=== PATIENT | female | born 1935 ===

== ENCOUNTER 2020-11-26 09:03 | Inpatient (IN) ==
[2020-11-26 11:51] LABS: POC Blood Urea Nitrogen 29 mg/dL (6-20); POC CO2 23 mmol/L (22-30); POC Calcium, Ionized 1.17 mmEq/L (1.16-1.32); POC Chloride 101 mEq/L (96-108); POC Glucose, Random 96 mg/dL (70-105); POC Hematocrit 32 % (36-48); POC Potassium 3.9 mEql/L (3.3-5.1); POC Sodium 138 mEq/L (133-145)
[2020-11-26 11:52] LABS: POC Pro Time 12.4 sec (11.9-14.5)
[2020-11-26 12:55] LABS: Hematocrit 32.1 % (36.0-48.0); Hemoglobin 10.3 g/dL (12.0-15.0); Mean Cell Volume 89.9 fL (80.0-100.0); Mean Corpuscular HGB Conc 32.1 g/dL (31.0-36.0); Mean Platelet Volume 11.7 fL (7.4-10.4); Platelet Count 230 K/mcL (140-440); RBC 3.57 M/mcL (4.00-5.20); Red Cell Distribution Width 13.2 % (11.5-14.5); WBC 7.6 K/mcL (4.5-11.0)
[2020-11-26 13:03] LABS: ALT/SGPT 9 U/L (<40); AST/SGOT 18 U/L (<32); Albumin 3.7 gm/dL (3.2-5.2); Alkaline Phosphatase 52 U/L (39-117); Bilirubin,Total 0.3 mg/dL (0.1-1.0); Blood Urea Nitrogen 28 mg/dL (8-23); Calcium 9.7 mg/dL (8.6-10.4); Carbon Dioxide 22 mmol/L (22-30); Chloride 97 mmol/L (96-108); Globulin 3.7 gm/dL (2.2-3.7); Glomerular Filtration Rate 25; Glucose 91 mg/dL (70-105)
[2020-11-26] MEDS ORDERED: VANCOMYCIN PER PHARMACY IV ONE (13:07)
[2020-11-26] MEDS ORDERED: CEFEPIME 1 GM VIAL IV ONE (13:07)
--- NOTE | 2020-11-26 13:21 | Cat Scan Report ---
CLINICAL INFORMATION: thigh wound, concern for deep space inf COMPARISON: None. TECHNIQUE: 0.625 mm helical slices were obtained from the left acetabulum to the proximal tibia and fibula. Following reconstruction, 2.5 or sagittal, coronal and axial reformatted images were processed and reviewed at bone and soft tissue windows. FINDINGS: The bone windows show no evidence of osteomyelitis or other osseous abnormality. There is mild degeneration in the hip and moderate degeneration in the patellofemoral and the lateral tibiofemoral joints. There is a 7 cm cutaneous ulceration in the medial thigh with underlying cellulitis confined to the subcutaneous fat. The muscle and fascial compartments are unremarkable-no evidence of myositis or fasciitis. There is no evidence of soft tissue abscess or foreign body. There is mild atrophy of the medial head of the gastrocnemius proximally. IMPRESSION: 7 cm cutaneous ulceration the medial thigh with mild underlying cellulitis. No evidence of underlyingabscess or myositis/ fasciitis. No evidence of osteomyelitis. Mild degeneration. 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
[2020-11-26 13:25] LABS: Band Neutrophils % 1 % (0-10); Lymphocytes % 16 % (15-49); Monocytes % (Manual) 4 % (1-12); Platelet Estimate NORMAL (Normal); RBC Morphology NORMAL (Normal); Segmented Neutrophils % 79 % (38-78)
--- NOTE | 2020-11-26 13:26 | Emergency Department Note ---
HPI General Chief complaint: Wound/Laceration Stated complaint: wound to left thigh infected Time Seen by Provider: 11/26/20 10:45 Source: family Mode of arrival: ambulatory Limitations: no limitations History of Present Illness HPI Narrative: Narrative: Patient presents with wound to the left thigh. 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 The day of injury patient was seen in outside apartment and the laceration was repaired. Patient has had poor wound healing and was seen by wound care since. The wound has not gotten better with outpatient antibiotics patient has been on Keflex and Cipro. In the clinic today and sent for admission and OR washout. No fevers or chills, no abdominal pain, no chest pain or shortness of breath. Related Data Home Medications Medication Instructions Recorded Confirmed bisoprolol fumarate 2.5 mg PO BID 11/26/20 11/26/20 ciprofloxacin HCl [Cipro] 500 mg PO BID 11/26/20 11/26/20 triamterene-hydrochlorothiazid 1 cap PO QDAY 11/26/20 11/26/20 Allergies Allergy/AdvReac Type Severity Reaction Status Date / Time No Known Drug Allergies Allergy Unverified 11/26/20 09:12 Review of Systems ROS ROS Narrative: Narrative: All systems ED: reviewed and negative except as stated. [facility] Narrative Patient History Narrative: Narrative: Medical/Surgical/Family History All Active Problems (Updated 11/26/20 @ 18:12 by Bryce Amato MD) Laceration (Acute) Non-healing wound of lower extremity (Acute) Social History Smoking Status: Never smoker Exam Narrative Narrative: Narrative: General Limitations: no limitations General appearance: Present alert, in no apparent distress and nontoxic Head Head: Present atraumatic, normocephalic and normal inspection ENT ENT: Present normal exam Neck Neck: Present normal inspection Chest Chest: Present normal inspection Respiratory Respiratory: Present normal lung sounds bilaterally; Absent wheezes, stridor and decreased breath sounds Cardiovascular Cardiovascular: Present regular rate, normal rhythm and normal heart sounds Adbominal Abdominal: Present soft and normal bowel sounds Extremities Extremities: Present normal inspection and full ROM Back Back: Absent CVA tenderness (R) and CVA tenderness (L) Neurological Neurological: Present alert and oriented X3 Psychiatric Psychiatric: Present normal affect Skin Skin: Present warm (WNL), dry and other (10 cm large wound to the left inner thigh, foul-smelling); Absent rash Course Vital Signs Vital signs: Vital Signs Temperature 96.8 F L 11/26/20 09:04 Respiratory Rate 16 11/26/20 09:04 Blood Pressure 97/63 11/26/20 09:04 Pulse Oximetry (%) 98 11/26/20 09:04 Temperature 97.6 F 11/26/20 16:25 Pulse Rate 83 11/26/20 16:25 Respiratory Rate 16 11/26/20 16:25 Blood Pressure 98/53 11/26/20 16:25 Pulse Oximetry (%) 97 11/26/20 16:25 MDM MDM Narrative Medical decision making narrative: Narrative:Patient was seen and evaluated in the emergency department for wound to the left thigh. Patient was sent from [facility]. Patient's exam showed a 10 cm nonhealing wound without obvious cellulitic changes. CT scan was performed which showed no deep space abscess, fasciitis, myositis or obvious osteomyelitis within the midst of a CT scan. Patient's creatinine was 2.0, CRP was elevated at 2.3 patient was given Vanco and cefepime. Patient was admitted as an observation with wound care following and likely OR tomorrow. Lab Data Result diagrams: 11/26/20 12:12 11/26/20 11:45 Labs: Lab Results 11/26/20 11/26/20 11/26/20 Range/Units 11:45 11:45 12:12 WBC 7.6 (4.5-11.0) K/mcL RBC 3.57 L (4.00-5.20) M/mcL Hgb 10.3 L (12.0-15.0) g/dL Hct 32.1 L (36.0-48.0) % POC Hct 32 L (36-48) % MCV 89.9 (80.0-100.0) fL MCH 28.9 (26.0-34.0) pg MCHC 32.1 (31.0-36.0) g/dL RDW 13.2 (11.5-14.5) % Plt Count 230 (140-440) K/mcL MPV 11.7 H (7.4-10.4) fL Seg Neutrophils % 79 H (38-78) % Band Neutrophils % 1 (0-10) % Lymphocytes % 16 (15-49) % Monocytes % (Manual) 4 (1-12) % Platelet Estimate Normal (Normal) RBC Morphology Normal (Normal) ESR 79 H (0-20) mm/hr POC PT 12.4 (11.9-14.5) sec POC INR 1.0 (0.8-1.2) POC Sodium 138 (133-145) mEq/L Sodium 135 (133-145) mmol/L POC Potassium 3.9 (3.3-5.1) mEql/L Potassium 3.9 (3.3-5.1) mmol/L POC Chloride 101 (96-108) mEq/L Chloride 97 (96-108) mmol/L Carbon Dioxide 22 (22-30) mmol/L POC Total CO2 23 (22-30) mmol/L Anion Gap 16.0 (8.0-16.0) POC BUN 29 H (6-20) mg/dL BUN 28 H (8-23) mg/dL Creatinine 1.8 H (0.6-1.1) mg/dL POC Creatinine 2.0 H (0.6-1.2) mg/dL GFR Calculation 25 Glucose 91 (70-105) mg/dL POC Glucose 96 (70-105) mg/dL Calcium 9.7 (8.6-10.4) mg/dL POC WB Ioniz Calcium 1.17 (1.16-1.32) mmEq/L Total Bilirubin 0.3 (0.1-1.0) mg/dL AST 18 (<32) U/L ALT 9 (<40) U/L Alkaline Phosphatase 52 (39-117) U/L C-Reactive Protein 2.30 H (0.03-0.80) mg/dL Total Protein 7.4 (5.9-8.4) gm/dL Albumin 3.7 (3.2-5.2) gm/dL Globulin 3.7 (2.2-3.7) gm/dL Albumin/Globulin Ratio 1.0 (1.0-2.3) ED POC Tests ED POC Tests: NICHO - SARS Antigen Negative Discharge Plan Patient/Caregiver Discharge Instructions Pt seen by [facility]/PA only: No Clinical Impression: Laceration Non-healing wound of lower extremity Qualifiers: Encounter type: subsequent encounter Laterality: left Qualified Code(s): S81.802D - Unspecified open wound, left lower leg, subsequent encounter Patient Disposition: Xfer As Outpt/Obs ([facility]) Discharge Date/Time: 11/26/20 16:25
[2020-11-26] MEDS ORDERED: VANCOMYCIN 1,000 MG in 0.9 % SODIUM CHLORIDE 250 ML IV ONE (13:30)
[2020-11-26 14:30] LABS: Erythrocyte Sedimentation Rate 79 mm/hr (0-20)
--- NOTE | 2020-11-26 17:57 | Internal Med History&Physical ---
HPI History of Present Illness Patient information: Note initiated : 11/26/20 at 5:46 pm Service Date, if different from initiated Date: [] Patient: Pham Kelly 85 y/o F admitted on 11/26/20 for wound to left thigh infected. Chief Complaint: [] History of present illness: Ms. Kelly is a 85 year old female with a history of hypertension and a left thigh wound sustained about 3 weeks ago after being trampled by a cow now presenting to the ED for surgery which is planned for tomorrow. Internal medicine has been asked to admit the patient. The patient denies fevers, she has been on multiple courses of antibiotics initially with Keflex then ciprofloxacin with no significant improvement in the wound. She denies changes in sensation or motor function in the left lower extremity. In the ED, the patient did not have leukocytosis, creatinine was 1.8, CRP 2.3. A CT scan of the left lower extremity without contrast showed a 7 cm cutaneous ulceration in the medial thigh with mild underlying cellulitis no evidence of underlying abscess, myositis, fasciitis, no evidence of osteomyelitis. Review of systems Constitutional: positive for chills, no fevers Eyes: no vision changes or pain Cardiovascular: no chest pain, no palpitations Respiratory: no cough or dyspnea Gastrointestinal: no abdominal pain, no nausea, vomiting, or diarrhea Genitourinary: no dysuria or difficulty voiding Musculoskeletal: positive for left left pain but no limiting movement Integumentary: positive for left thigh wound Neurological: no focal weakness or numbness Psychiatric: no anxiety or depression Physical exam Head: Atraumatic, normal inspection. Eyes: normal appearance, no scleral icterus. Neck: full ROM Respiratory: no respiratory distress. Cardiovascular: normal rate and rhythm, S1, S2. GI/Abdominal: soft, nontender, no guarding. Extremities: large wound on medial left thigh with foul smelling purulence Neurological: CN II-XII intact, intact motor, intact sensation. Psychiatric: normal mood. Skin: warm, normal color MEDS/ALLERGIES Home Medications and Allergies Home Medications Medication Instructions Recorded Confirmed Type bisoprolol fumarate 2.5 mg PO BID 11/26/20 11/26/20 History ciprofloxacin HCl [Cipro] 500 mg PO BID 11/26/20 11/26/20 History triamterene-hydrochlorothiazid 1 cap PO QDAY 11/26/20 11/26/20 History Allergies Allergy/AdvReac Type Severity Reaction Status Date / Time No Known Drug Allergies Allergy Unverified 11/26/20 09:12 EXAM Constitutional Vitals: Temp Pulse Resp BP Pulse Ox 97.6 F 83 16 98/53 97 11/26/20 16:25 11/26/20 16:25 11/26/20 16:25 11/26/20 16:25 11/26/20 16:25 DATA Data Completed and Pending Labs: Labs from last 24 hours 11/26/20 11/26/20 11/26/20 12:12 11:45 11:45 WBC 7.6 RBC 3.57 L Hgb 10.3 L Hct 32.1 L POC Hct 32 L MCV 89.9 MCH 28.9 MCHC 32.1 RDW 13.2 Plt Count 230 MPV 11.7 H Seg Neutrophils % 79 H Band Neutrophils % 1 Lymphocytes % 16 Monocytes % (Manual) 4 Platelet Estimate Normal RBC Morphology Normal ESR 79 H POC PT 12.4 POC INR 1.0 POC Sodium 138 Sodium 135 POC Potassium 3.9 Potassium 3.9 POC Chloride 101 Chloride 97 Carbon Dioxide 22 POC Total CO2 23 Anion Gap 16.0 POC BUN 29 H BUN 28 H Creatinine 1.8 H POC Creatinine 2.0 H GFR Calculation 25 Glucose 91 POC Glucose 96 Calcium 9.7 POC WB Ioniz Calcium 1.17 Total Bilirubin 0.3 AST 18 ALT 9 Alkaline Phosphatase 52 C-Reactive Protein 2.30 H Total Protein 7.4 Albumin 3.7 Globulin 3.7 Albumin/Globulin Ratio 1.0 A/P Narrative A/P Narrative: Assessment: 85 year old female with hypertension and nonhealing left thigh wound from wound sustained after being crushed by a cow admitted for surgical management. #Nonhealing left thigh wound #Elevated creatine - CKD vs HARI? #Hypertension Plan -Admit for observation. -Hold off antibiotics until surgical cultures can be obtained. -Hold home Triamterene-Hydrochlorothiazide. -Monitor renal function. -NPO at midnight. -Code status: Full -Disposition: home Time Spent With Patient Time: Total time spent is greater than 50% in coordination of care (as documented) at patient's floor/unit and/or counseling patient: QUALITY Stroke Symptom Onset Unknown: No VTE Deep Vein Thrombosis/Pulmonary Embolism Present on Admission: No
[2020-11-26] MEDS ORDERED: ACETAMINOPHEN 325 MG TABLET PO PRN (18:03)
--- NOTE | 2020-11-26 19:46 | General Surgery Consult Note ---
HPI Data of Consult Consult date: 11/26/20 Requesting physician: Joseph Joseph Primary Care Provider: Stella Santos Consult Narrative Chief complaint: NON HEALING Post traumatic wound LEFT thigh. Reason for consult: Failed out patient treatment. Needs surgery and further wound care. History of present illness: Patient sustained a traumatic injury, when a cow trampled on her LEFT medial thigh on 11/04/2020. Avulsed skin flap was sutured back in ER at [facility] and patient was treated with PO antibiotics. Due to lack of healing and subsequent necrosis and dry gangrene of flap, she was referred to wound care center for further management. Patient is otherwise in her usual state of health and ADL. I saw her in the wound clinic today and referred her to ER for for work up, imaging studies and preparation for OR debridement tomorrow AM. 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 She is a lifelong non smoker. cc:: CC: Joseph Joseph MD [facility] All Active Problems Laceration (Acute) Non-healing wound of lower extremity (Acute) MEDS/ALLERGIES Home Medications and Allergies Home Medications Medication Instructions Recorded Confirmed Type bisoprolol fumarate 2.5 mg PO BID 11/26/20 11/26/20 History ciprofloxacin HCl [Cipro] 500 mg PO BID 11/26/20 11/26/20 History triamterene-hydrochlorothiazid 1 cap PO QDAY 11/26/20 11/26/20 History Allergies Allergy/AdvReac Type Severity Reaction Status Date / Time No Known Drug Allergies Allergy Unverified 11/26/20 09:12 Physical Examination Vital Signs Vital signs: Temp Pulse Resp BP Pulse Ox 97.6 F 83 16 98/53 97 11/26/20 16:25 11/26/20 16:25 11/26/20 16:25 11/26/20 16:25 11/26/20 16:25 General physical appearance General physical exam: well developed, well nourished, no distress and no pain Eyes Eye exam: PERRL and normal ocular movement ENT ENT exam: normal pinna, normal nares, normal mucosa and no congestion Head Head exam IM: Present atraumatic and normocephalic Neck Neck exam: no masses, no lymphadenopathy and no venous distension Cardiovascular Cardiovascular exam IM: Present normal rate and rhythm Peripheral pulses: 3+/4+: dorsalis pedis (L), dorsalis pedis (R), femoral (R) and posterior tibialis (L) Respiratory Respiratory exam: normal expansion and clear to auscultation Abdomen Abdomen: Present soft, non tender and bowel sounds Integumentary Integumentary: Present other (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 7 x 12 x 2 CM) Neurologic Neurologic: Present normal coordination, normal sensation and other (Non focal neurological examination. ) Musculoskeletal Musculoskeletal: Present normal gait and other (Ambulates without assistance. ) Psychiatric Psychiatric: Present oriented to time, oriented to person, oriented to place, speech is normal and memory intact Results Labs Result diagrams: 11/26/20 12:12 11/26/20 11:45 Labs: Abnormal lab results 11/26/20 11/26/20 Range/Units 11:45 12:12 RBC 3.57 L (4.00-5.20) M/mcL Hgb 10.3 L (12.0-15.0) g/dL Hct 32.1 L (36.0-48.0) % POC Hct 32 L (36-48) % MPV 11.7 H (7.4-10.4) fL Seg Neutrophils % 79 H (38-78) % ESR 79 H (0-20) mm/hr POC BUN 29 H (6-20) mg/dL BUN 28 H (8-23) mg/dL Creatinine 1.8 H (0.6-1.1) mg/dL POC Creatinine 2.0 H (0.6-1.2) mg/dL C-Reactive Protein 2.30 H (0.03-0.80) mg/dL Diabetes panel 11/26/20 Range/Units 11:45 Sodium 135 (133-145) mmol/L Potassium 3.9 (3.3-5.1) mmol/L Chloride 97 (96-108) mmol/L Carbon Dioxide 22 (22-30) mmol/L BUN 28 H (8-23) mg/dL Creatinine 1.8 H (0.6-1.1) mg/dL Glucose 91 (70-105) mg/dL Calcium 9.7 (8.6-10.4) mg/dL AST 18 (<32) U/L ALT 9 (<40) U/L Alkaline Phosphatase 52 (39-117) U/L Total Protein 7.4 (5.9-8.4) gm/dL Albumin 3.7 (3.2-5.2) gm/dL Calcium panel 11/26/20 Range/Units 11:45 Calcium 9.7 (8.6-10.4) mg/dL Albumin 3.7 (3.2-5.2) gm/dL Pituitary panel 11/26/20 Range/Units 11:45 Sodium 135 (133-145) mmol/L Potassium 3.9 (3.3-5.1) mmol/L Chloride 97 (96-108) mmol/L Carbon Dioxide 22 (22-30) mmol/L BUN 28 H (8-23) mg/dL Creatinine 1.8 H (0.6-1.1) mg/dL Glucose 91 (70-105) mg/dL Calcium 9.7 (8.6-10.4) mg/dL Adrenal panel 11/26/20 Range/Units 11:45 Sodium 135 (133-145) mmol/L Potassium 3.9 (3.3-5.1) mmol/L Chloride 97 (96-108) mmol/L Carbon Dioxide 22 (22-30) mmol/L BUN 28 H (8-23) mg/dL Creatinine 1.8 H (0.6-1.1) mg/dL Glucose 91 (70-105) mg/dL Calcium 9.7 (8.6-10.4) mg/dL Total Bilirubin 0.3 (0.1-1.0) mg/dL AST 18 (<32) U/L ALT 9 (<40) U/L Alkaline Phosphatase 52 (39-117) U/L Total Protein 7.4 (5.9-8.4) gm/dL Albumin 3.7 (3.2-5.2) gm/dL All other labs normal. A/P Narrative A/P Narrative: Assessment: Traumatic wound LEFT medial thigh with NECROTIC skin and subcutaneous tissue. ( Stage 4 wound ) Reviewed lab results and CT scan of thigh. NO evidence of deep located collections or osteomyelitis. Plan: For OR surgical excision debridement and pulse lavage irrigation. Tissue cultures and open packing. I discussed the plan of treatment and proposed surgical procedure with patient and her grand daughter. I/R/B/C and alternatives were reviewed. All questions were answered. Informed consent obtained for procedure. Time Spent With Patient Time: Total time spent is greater than 50% in coordination of care (as documented) at patient's floor/unit and/or counseling patient: Total time spent with greater than 50% in coordination of care (as documented) at patient's floor/unit and/or counseling patient:: 25 - 35 minutes
[2020-11-26] MEDS: BISOPROLOL 5 MG TABLET PO SCH (20:38)
[2020-11-26] MEDS: 0.9 % SODIUM CHLORIDE 10 ML SYRINGE IV SCH (20:38)
[2020-11-26] MEDS: DOCUSATE SODIUM 100 MG CAPSULE PO SCH (20:40)
[2020-11-26] MEDS: SENNOSIDES 1 TABLET PO SCH (20:40)
[2020-11-26 21:12] LABS: Appearance,Urine CLEAR (Clear); Bilirubin,Urine Negative (Negative); Color,Urine YELLOW; Culture Indicated,Urine No; Glucose,Urine (UA) Negative (Negative); Ketones,Urine 5 mg/dL (Negative); Leukocyte Esterase,Urine Negative /ug (Negative); Mucus,Urine FEW /hpf; Nitrate,Urine Negative (Negative); Protein,Urine Negative (Negative); Specific Gravity,Urine 1.015 (1.000-1.035); Urine Hyaline Cast 1 /lph (0-2); Urine RBC 1 /hpf (0-3); Urine Squamous Epithelial Cell 1 /hpf (0-4); Urine WBC 1 /hpf (0-4); Urobilinogen,Urine Negative
[2020-11-27] MEDS ORDERED: IPRATROPIUM/ALBUTEROL 3 ML AMPUL.NEB NEB PRN ×2 (05:00→16:27)
[2020-11-27] MEDS ORDERED: SCOPOLAMINE 1 PATCH PATCH TOPICAL PRN (05:00)
[2020-11-27] MEDS: 0.9 % SODIUM CHLORIDE 10 ML SYRINGE IV SCH ×3 (06:10→22:14)
[2020-11-27 07:44] LABS: Blood Urea Nitrogen 30 mg/dL (8-23); Calcium 8.7 mg/dL (8.6-10.4); Carbon Dioxide 25 mmol/L (22-30); Chloride 101 mmol/L (96-108); Glomerular Filtration Rate 32; Glucose 94 mg/dL (70-105)
[2020-11-27] MEDS: DOCUSATE SODIUM 100 MG CAPSULE PO SCH ×2 (09:10→21:49)
[2020-11-27] MEDS: BISOPROLOL 5 MG TABLET PO SCH ×2 (09:11→21:36)
--- NOTE | 2020-11-27 09:14 | General Surgery Progress Note ---
SUBJECTIVE Subjective Patient information: Note initiated : 11/27/20 at 9:11 am Service Date, if different from initiated Date: [] Patient: Pham Kelly 85 y/o F admitted on 11/26/20 for wound to left thigh infected. Chief Complaint: [] Additional PMFSH (Level 3 Only): Patient had an uneventful night. Constitutional Vitals: Vital Signs Temp Pulse Resp BP Pulse Ox 97.7 F 68 18 125/60 96 11/27/20 08:00 11/27/20 08:00 11/27/20 08:00 11/27/20 08:00 11/27/20 08:00 Period Temp Pulse Resp BP Sys/Restrepo Pulse Ox Last 24 Hr 96.8 F-98.2 F 68-85 16-20 97-143/53-95 94-99 Intake and Output 11/26/20 11/27/20 11/27/20 21:59 05:59 13:59 Intake Total 250 250 Output Total 100 200 100 Balance 150 50 -100 Weight 127 lb 8 oz Intake & Output: Intake & Output 11/26/20 11/27/20 11/27/20 21:59 05:59 13:59 Intake Total 250 250 Output Total 100 200 100 Balance 150 50 -100 Weight 127 lb 8 oz Intake: IV 250 Vancomycin 1,000 mg In Sodium 250 Chloride 0.9% 250 ml @ 250 mls/ hr IV ONCE ONE Rx#:[id number] Oral 250 Output: Void Amount 100 200 100 Other: Meal Dinner Percent of Meal Consumed 50% Feeding Ability Independent Urine Appearance Clear Clear Clear Urine Color Pale Bright Yellow Pale Urine Odor Normal General appearance: cooperative and no acute distress Exam: AVSS. No changes KERI Left thigh dressing is CDI. EKG NSR. Labs reviewed. A/P Narrative A/P Narrative: Assessment: Patient is ready for OR today . She is NPO Plan: Further recommendations after the procedure. Time Spent With Patient Time: Total time spent is greater than 50% in coordination of care (as documented) at patient's floor/unit and/or counseling patient: Total time spent with greater than 50% in coordination of care (as documented) at patient's floor/unit and/or counseling patient:: less than 15 minutes
--- NOTE | 2020-11-27 09:48 | XRay Report ---
CLINICAL INFORMATION: Pre operative for surgery under general anesthesia COMPARISON: None. FINDINGS: Heart size, mediastinum and pulmonary vessels are normal. The lungs are clear. No effusions. Minimal chronic wedging of the thoracic vertebral bodies noted. IMPRESSION: No acute cardiopulmonary disease. Interpreted and Authenticated by: Quentin Valverde 11/27/20
[2020-11-27] MEDS ORDERED: VANCOMYCIN 1,000 MG in 0.9 % SODIUM CHLORIDE 250 ML IV SCH (15:45)
[2020-11-27] MEDS ORDERED: cefTRIAXone 1 GM VIAL IV ONE (15:45)
[2020-11-27] MEDS ORDERED: DEXAMETHASONE 10 MG/ML VIAL ONE (16:10)
[2020-11-27] MEDS ORDERED: PROPOFOL 200 MG/20 ML VIAL IV ONE (16:10)
[2020-11-27] MEDS ORDERED: GLYCOPYRROLATE 0.2 MG/ML VIAL IV ONE (16:10)
[2020-11-27] MEDS ORDERED: LIDOCAINE HCL/PF 100 MG/5 ML SYRINGE IV ONE (16:10)
[2020-11-27] MEDS ORDERED: PHENYLEPHRINE 10 MG/ML VIAL ONE (16:10)
[2020-11-27] MEDS ORDERED: GENTAMICIN SULFATE 800 MG/20 ML VIAL IR ONE (16:10)
[2020-11-27] MEDS ORDERED: ONDANSETRON 4 MG/2 ML VIAL ONE (16:10)
[2020-11-27] MEDS ORDERED: fentaNYL 100 MCG/2 ML VIAL IV ONE (16:10)
[2020-11-27] MEDS ORDERED: BUPIVACAINE W/EPI 0.25% 50 ML VIAL IJ ONE (16:25)
[2020-11-27] MEDS ORDERED: PROMETHAZINE 25 MG/ML VIAL IV PRN (16:27)
[2020-11-27] MEDS ORDERED: MEPERIDINE 25 MG/ML VIAL IV PRN (16:27)
[2020-11-27] MEDS ORDERED: diphenhydrAMINE 50 MG/ML VIAL IV PRN (16:27)
[2020-11-27] MEDS ORDERED: BENZOCAINE/MENTHOL 1 LOZENGE PO PRN (16:27)
[2020-11-27] MEDS ORDERED: NALOXONE HCL 0.4 MG/ML VIAL IV PRN (16:27)
[2020-11-27] MEDS ORDERED: ONDANSETRON 4 MG/2 ML VIAL IV PRN (16:27)
[2020-11-27] MEDS ORDERED: LACTATED RINGERS 250 ML IV PRN (16:27)
[2020-11-27] MEDS ORDERED: fentaNYL 100 MCG/2 ML VIAL IV PRN (16:27)
[2020-11-27] MEDS ORDERED: ACETAMINOPHEN 1,000 MG/100 ML BAG IV ONE (16:27)
[2020-11-27] MEDS ORDERED: LACTATED RINGERS 1,000 ML IV SCH (16:30)
[2020-11-27] MEDS ORDERED: oxyCODONE/APAP 5/325MG TABLET PO PRN ×2 (17:56→18:01)
--- NOTE | 2020-11-27 18:13 | Brief Operative Note ---
Brief Operative Note Date of procedure: 11/27/20 Pre-op diagnosis: 2 weeks Old trauma wound LEFT medial thigh Post-op diagnosis: same Procedure: Wound exploration, Evacuation of hematoma Debridement, pulse lavage, intra operative Doppler and open packing Grafts/Implants: No Anesthesia: GLMA Findings: Necrotic tissue and old perivascular hematoma around medial mid thigh, Femoral Artery SFA Final wound dimensions. 8 x 12 x 3 CM Undermining 3-5 CM around wound edges Complications: none Surgeon: Kp Tucker Estimated blood loss (cc): 10 Specimens Removed/Pathology: other (Tissue for pathology and culture) Condition: stable Disposition: floor
--- NOTE | 2020-11-27 18:17 | Internal Med Progress Note ---
SUBJECTIVE Subjective Patient information: Note initiated : 11/27/20 at 6:17 pm Service Date, if different from initiated Date: [] Patient: Pham Kelly 85 y/o F admitted on 11/26/20 for wound to left thigh infected. Chief Complaint: [] Interval history: Ms. Kelly is a 85 year old female with a history of hypertension and a left thigh wound sustained about 3 weeks ago after being trampled by a cow now presenting to the ED for surgery which is planned for tomorrow. Internal medicine has been asked to admit the patient. The patient denies fevers, she has been on multiple courses of antibiotics initially with Keflex then ciprofloxacin with no significant improvement in the wound. She denies changes in sensation or motor function in the left lower extremity. In the ED, the patient did not have leukocytosis, creatinine was 1.8, CRP 2.3. A CT scan of the left lower extremity without contrast showed a 7 cm cutaneous ulceration in the medial thigh with mild underlying cellulitis no evidence of underlying abscess, myositis, fasciitis, no evidence of osteomyelitis. 11/27 I&D today-possible femoral artery compromise, Dr. Philip consulting with vascular surgery. Physical exam Head: Atraumatic, normal inspection. Eyes: normal appearance, no scleral icterus. Neck: full ROM Respiratory: no respiratory distress. Cardiovascular: normal rate and rhythm, S1, S2. GI/Abdominal: soft, nontender, no guarding. Extremities: large wound on medial left thigh Neurological: CN II-XII intact, intact motor, intact sensation. Psychiatric: normal mood. Skin: warm, normal color Constitutional Vitals: Vital Signs Temp Pulse Resp BP Pulse Ox 99.2 F H 79 15 123/57 95 11/27/20 17:28 11/27/20 17:28 11/27/20 17:28 11/27/20 17:25 11/27/20 17:28 Period Temp Pulse Resp BP Sys/Restrepo Pulse Ox Last 24 Hr 97.7 F-99.7 F 68-97 14-20 97-142/57-72 93-100 Intake and Output 11/27/20 11/27/20 11/27/20 05:59 13:59 21:59 Intake Total 250 1050 Output Total 200 100 50 Balance 50 -100 1000 Intake & Output: Intake & Output 11/27/20 11/27/20 11/27/20 05:59 13:59 21:59 Intake Total 250 1050 Output Total 200 100 50 Balance 50 -100 1000 Intake: IV 350 Vancomycin 1,000 mg In Sodium 250 Chloride 0.9% 250 ml @ 250 mls/ hr IV PREOP [facility] Rx#:[id number] Oral 250 IV - Manual Only 700 Output: Void Amount 200 100 Estimated Blood Loss 50 Other: Urine Appearance Clear Clear Urine Color Bright Yellow Pale # Voids 1 OBJ DATA Labs CBC & Chem 7: 11/26/20 12:12 11/27/20 05:21 Labs: Abnormal Lab Results 11/27/20 11/26/20 11/26/20 05:21 20:20 12:12 RBC 3.57 L Hgb 10.3 L Hct 32.1 L POC Hct MPV 11.7 H Seg Neutrophils % 79 H ESR 79 H POC BUN BUN 30 H Creatinine 1.5 H POC Creatinine C-Reactive Protein Urine Ketones 5 A Urine Mucus Few A 11/26/20 11:45 RBC Hgb Hct POC Hct 32 L MPV Seg Neutrophils % ESR POC BUN 29 H BUN 28 H Creatinine 1.8 H POC Creatinine 2.0 H C-Reactive Protein 2.30 H Urine Ketones Urine Mucus Meds: Medications Acetaminophen (Acetaminophen 325 Mg Tablet) 650 mg PO Q6HP PRN; Protocol PRN Reason: Per Pain Protocol/Fever > 101 Bisoprolol Fumarate (Bisoprolol 5 Mg Tablet) 2.5 mg PO BID [facility] Last Admin: 11/27/20 09:11 Dose: Not Given Documented by: Docusate Sodium (Docusate Sodium 100 Mg Capsule) 100 mg PO BID [facility] Last Admin: 11/27/20 09:10 Dose: Not Given Documented by: Ondansetron HCl (Ondansetron 4 Mg/2 Ml Vial) 4 mg IV Q6HP PRN PRN Reason: Nausea And Vomiting Oxycodone/Acetaminophen (Oxycodone/Apap 5/325mg Tablet) 1 tab PO Q6HP PRN; Protocol PRN Reason: Per Pain Protocol Last Admin: 11/27/20 18:12 Dose: 1 tab Documented by: Oxycodone/Acetaminophen (Oxycodone/Apap 5/325mg Tablet) 1 tab PO Q4-6HP PRN; Protocol PRN Reason: Per Pain Protocol Senna (Sennosides 1 Tablet) 2 tab PO HS [facility] Last Admin: 11/26/20 20:40 Dose: Not Given Documented by: Sodium Chloride (0.9 % Sodium Chloride 10 Ml Syringe) 10 ml IV Q8 [facility] Last Admin: 11/27/20 14:32 Dose: Not Given Documented by: A/P Narrative A/P Narrative: Assessment: 85 year old female with hypertension and nonhealing left thigh wound from wound sustained after being crushed by a cow admitted for surgical management. #Nonhealing left thigh wound s/p I&D 11/27/20 #Possible left femoral artery compromise #Elevated creatine - likely CKD, less likely HARI #Hypertension, stable off meds Plan -Admit to inpatient. -Ceftriaxone and Flagyl IV. -Vascular surgery evaluation. -Hold home Triamterene-Hydrochlorothiazide for normal blood pressures. . -Monitor renal function. -Diet -Code status: Full -Disposition: Will depend on vascular surgery recommendations. Time Spent With Patient Time: Total time spent is greater than 50% in coordination of care (as documented) at patient's floor/unit and/or counseling patient: QUALITY Stroke Symptom Onset Unknown: No VTE Deep Vein Thrombosis/Pulmonary Embolism Present on Admission: No
[2020-11-27] MEDS: SENNOSIDES 1 TABLET PO SCH (21:49)
[2020-11-27] MEDS: metroNIDAZOLE 500 MG/100 ML BAG IV SCH (22:13)
[2020-11-28] MEDS: metroNIDAZOLE 500 MG/100 ML BAG IV SCH ×3 (05:44→22:39)
[2020-11-28] MEDS: 0.9 % SODIUM CHLORIDE 10 ML SYRINGE IV SCH ×3 (05:45→21:36)
[2020-11-28 06:42] LABS: Basophils # (Auto) 0.01 K/mcL (0.00-0.20); Basophils % (Auto) 0.1 % (0.0-2.0); Eosinophils # (Auto) 0 K/mcL (0.00-0.70); Eosinophils % (Auto) 0 % (0.0-7.0); Hematocrit 28.1 % (36.0-48.0); Hemoglobin 8.7 g/dL (12.0-15.0); Lymphocytes # (Auto) 0.54 K/mcL (1.50-4.80); Lymphocytes % (Auto) 6.8 % (15.0-49.0); Mean Cell Volume 90.4 fL (80.0-100.0); Mean Platelet Volume 11.2 fL (7.4-10.4); Monocytes % (Auto) 2.5 % (1.0-12.0); Neutrophils % (Auto) 90.6 % (38.0-78.0); Platelet Count 231 K/mcL (140-440); RBC 3.11 M/mcL (4.00-5.20); Red Cell Distribution Width 13.2 % (11.5-14.5)
[2020-11-28 07:06] LABS: Prealbumin 11.2 mg/dL (20.0-40.0)
[2020-11-28 07:31] LABS: Blood Urea Nitrogen 31 mg/dL (8-23); Carbon Dioxide 21 mmol/L (22-30); Chloride 100 mmol/L (96-108); Glomerular Filtration Rate 29; Glucose 139 mg/dL (70-105)
[2020-11-28 08:20] LABS: Estimated Average Glucose(eAG) 100 mg/dL; Hemoglobin A1C 5.1 % Hgb (4.0-6.0)
[2020-11-28] MEDS: DOCUSATE SODIUM 100 MG CAPSULE PO SCH ×2 (08:49→21:37)
[2020-11-28] MEDS: BISOPROLOL 5 MG TABLET PO SCH ×2 (08:49→21:35)
[2020-11-28] MEDS: cefTRIAXone 2 GM in DEXTROSE 5% IN WATER 50 ML IV SCH (09:40)
--- NOTE | 2020-11-28 11:10 | General Surgery Progress Note ---
SUBJECTIVE Subjective Patient information: Note initiated : 11/28/20 at 11:08 am Service Date, if different from initiated Date: [] Patient: Pham Kelly 85 y/o F admitted on 11/27/20 for wound to left thigh infected. Chief Complaint: [] Additional PMFSH (Level 3 Only): POD # 1. Patient had an uneventful night. She does NOT want Percocet tabs or any pain Meds. Constitutional Vitals: Vital Signs Temp Pulse Resp BP Pulse Ox 96.6 F L 62 14 123/70 95 11/28/20 07:53 11/28/20 07:53 11/28/20 07:53 11/28/20 07:53 11/28/20 07:53 Period Temp Pulse Resp BP Sys/Restrepo Pulse Ox Last 24 Hr 96.6 F-99.7 F 62-97 14-18 92-142/50-72 90-100 Intake and Output 11/27/20 11/28/20 11/28/20 21:59 05:59 13:59 Intake Total 1050 340 150 Output Total 50 150 Balance 1000 190 150 Weight 129 lb 8 oz Intake & Output: Intake & Output 11/27/20 11/28/20 11/28/20 21:59 05:59 13:59 Intake Total 1050 340 150 Output Total 50 150 Balance 1000 190 150 Weight 129 lb 8 oz Intake: IV 350 100 150 Vancomycin 1,000 mg In Sodium 250 Chloride 0.9% 250 ml @ 250 mls/ hr IV PREOP [facility] Rx#:[id number] Rocephin 2 gm In Dextrose 5% in 50 Water 50 ml @ 100 mls/hr IV Q24H [facility] Rx#:[id number] Oral 240 IV - Manual Only 700 Output: Void Amount 150 Estimated Blood Loss 50 Other: Urine Color Dark Yellow General appearance: cooperative and no acute distress Exam: AVSS. No changes KERI. LEFT LE post surgical dressing is CDI Patient able to get OOB and go to bathroom Lab results significant for LOW prealbumin. Patient awaits evaluation by vascular surgeon. A/P Narrative A/P Narrative: Assessment: Patient seen with Neto LOPEZ. Inpatient Wound Care Nurse. Progress reviewed with Virginia LOPEZ I/C. Will await evaluation by Vascular surgeon. Hypoproteinemia. Needs supplements; OXANDRIN 10 mg / day for 15 days. Later repeat prealbumin levels. Patient will benefit from NUTRITION consult. Plan: Continue to monitor at this time. Time Spent With Patient Time: Total time spent is greater than 50% in coordination of care (as documented) at patient's floor/unit and/or counseling patient: Total time spent with greater than 50% in coordination of care (as documented) at patient's floor/unit and/or counseling patient:: 15 - 24 minutes
--- NOTE | 2020-11-28 13:10 | Internal Med Progress Note ---
SUBJECTIVE Subjective Patient information: Note initiated : 11/28/20 at 1:09 pm Service Date, if different from initiated Date: [] Patient: Pham Kelly 85 y/o F admitted on 11/27/20 for wound to left thigh infected. Chief Complaint: [] Interval history: Ms. Kelly is a 85 year old female with a history of hypertension and a left thigh wound sustained about 3 weeks ago after being trampled by a cow now presenting to the ED for surgery which is planned for tomorrow. Internal medicine has been asked to admit the patient. The patient denies fevers, she has been on multiple courses of antibiotics initially with Keflex then ciprofloxacin with no significant improvement in the wound. She denies changes in sensation or motor function in the left lower extremity. In the ED, the patient did not have leukocytosis, creatinine was 1.8, CRP 2.3. A CT scan of the left lower extremity without contrast showed a 7 cm cutaneous ulceration in the medial thigh with mild underlying cellulitis no evidence of underlying abscess, myositis, fasciitis, no evidence of osteomyelitis. 11/27 I&D today-possible femoral artery compromise, Dr. Philip consulting with vascular surgery. 11/28 Awaiting vascular surgery evaluation. Nutrition consulted to optimize nutrition for wound healing. Physical exam Head: Atraumatic, normal inspection. Eyes: normal appearance, no scleral icterus. Neck: full ROM Respiratory: no respiratory distress. Cardiovascular: normal rate and rhythm, S1, S2. GI/Abdominal: soft, nontender, no guarding. Extremities: large wound on medial left thigh covered in clean bandage Neurological: CN II-XII intact, intact motor, intact sensation. Psychiatric: normal mood. Skin: warm, normal color Constitutional Vitals: Vital Signs Temp Pulse Resp BP Pulse Ox 96.5 F L 62 14 124/66 96 11/28/20 12:00 11/28/20 12:00 11/28/20 12:00 11/28/20 12:00 11/28/20 12:00 Period Temp Pulse Resp BP Sys/Restrepo Pulse Ox Last 24 Hr 96.5 F-99.7 F 62-97 14-18 92-142/50-72 90-100 Intake and Output 11/27/20 11/28/20 11/28/20 21:59 05:59 13:59 Intake Total 1050 340 270 Output Total 50 150 200 Balance 1000 190 70 Weight 58.74 kg Intake & Output: Intake & Output 11/27/20 11/28/20 11/28/20 21:59 05:59 13:59 Intake Total 1050 340 270 Output Total 50 150 200 Balance 1000 190 70 Weight 58.74 kg Intake: IV 350 100 150 Vancomycin 1,000 mg In Sodium 250 Chloride 0.9% 250 ml @ 250 mls/ hr IV [facility] Rx#:[id number] Rocephin 2 gm In Dextrose 5% in 50 Water 50 ml @ 100 mls/hr IV Q24H [facility] Rx#:[id number] Oral 240 120 IV - Manual Only 700 Output: Void Amount 150 200 Estimated Blood Loss 50 Other: Meal Lunch Percent of Meal Consumed 100% Urine Color Dark Yellow OBJ DATA Labs CBC & Chem 7: 11/28/20 05:26 11/28/20 05:26 Labs: Abnormal Lab Results 11/28/20 11/28/20 11/28/20 05:26 05:26 05:26 RBC 3.11 L Hgb 8.7 L Hct 28.1 L POC Hct MPV 11.2 H Neut % (Auto) 90.6 H Lymph % (Auto) 6.8 L Lymph # (Auto) 0.54 L Seg Neutrophils % ESR Carbon Dioxide 21 L POC BUN BUN 31 H Creatinine 1.6 H POC Creatinine Glucose 139 H Ionized Calcium Alex 1.14 L C-Reactive Protein 2.60 H Prealbumin 11.2 L Procalcitonin 0.16 H Urine Ketones Urine Mucus 11/27/20 11/26/20 11/26/20 05:21 20:20 12:12 RBC 3.57 L Hgb 10.3 L Hct 32.1 L POC Hct MPV 11.7 H Neut % (Auto) Lymph % (Auto) Lymph # (Auto) Seg Neutrophils % 79 H ESR 79 H Carbon Dioxide POC BUN BUN 30 H Creatinine 1.5 H POC Creatinine Glucose Ionized Calcium Alex C-Reactive Protein Prealbumin Procalcitonin Urine Ketones 5 A Urine Mucus Few A 11/26/20 11:45 RBC Hgb Hct POC Hct 32 L MPV Neut % (Auto) Lymph % (Auto) Lymph # (Auto) Seg Neutrophils % ESR Carbon Dioxide POC BUN 29 H BUN 28 H Creatinine 1.8 H POC Creatinine 2.0 H Glucose Ionized Calcium Alex C-Reactive Protein 2.30 H Prealbumin Procalcitonin Urine Ketones Urine Mucus Meds: Medications Acetaminophen (Acetaminophen 325 Mg Tablet) 650 mg PO Q6HP PRN; Protocol PRN Reason: Per Pain Protocol/Fever > 101 Bisoprolol Fumarate (Bisoprolol 5 Mg Tablet) 2.5 mg PO BID [facility] Last Admin: 11/28/20 08:49 Dose: 2.5 mg Documented by: Docusate Sodium (Docusate Sodium 100 Mg Capsule) 100 mg PO BID [facility] Last Admin: 11/28/20 08:49 Dose: 100 mg Documented by: Metronidazole (Flagyl) 500 mg in 100 mls @ 100 mls/hr IV Q8H [facility]; Protocol Last Infusion: 11/28/20 06:45 Dose: Infused Documented by: Ceftriaxone Sodium 2 gm/ (Dextrose) 50 mls @ 100 mls/hr IV Q24H [facility] Last Infusion: 11/28/20 10:10 Dose: Infused Documented by: Ondansetron HCl (Ondansetron 4 Mg/2 Ml Vial) 4 mg IV Q6HP PRN PRN Reason: Nausea And Vomiting Oxycodone/Acetaminophen (Oxycodone/Apap 5/325mg Tablet) 1 tab PO Q4-6HP PRN; Protocol PRN Reason: Per Pain Protocol Senna (Sennosides 1 Tablet) 2 tab PO HS [facility] Last Admin: 11/27/20 21:49 Dose: Not Given Documented by: Sodium Chloride (0.9 % Sodium Chloride 10 Ml Syringe) 10 ml IV Q8 [facility] Last Admin: 11/28/20 05:45 Dose: 10 ml Documented by: A/P Narrative A/P Narrative: Assessment: 85 year old female with hypertension and nonhealing left thigh wound from wound sustained after being crushed by a cow admitted for surgical management. #Nonhealing left thigh wound s/p I&D 11/27/20 #Left femoral artery compromise #Anemia #Elevated creatine - likely CKD, less likely HARI #Hypertension, stable off meds Plan -Ceftriaxone and Flagyl IV. -Follow hemoglobin, monitor for bleed. -Trend CRP-if increasing consider broadening coverage to include Pseudomonas. -Vascular surgery evaluation. -Hold home Triamterene-Hydrochlorothiazide for normal blood pressures. . -Monitor renal function. -Diet -Code status: Full -Disposition: Will depend on vascular surgery recommendations. Time Spent With Patient Time: Total time spent is greater than 50% in coordination of care (as documented) at patient's floor/unit and/or counseling patient: QUALITY Stroke Symptom Onset Unknown: No VTE Deep Vein Thrombosis/Pulmonary Embolism Present on Admission: No
[2020-11-28] MEDS ORDERED: cefTRIAXone 2 GM VIAL IM SCH (14:00)
[2020-11-28] MEDS ORDERED: cefTRIAXone 2 GM VIAL IV SCH (14:00)
--- NOTE | 2020-11-28 15:16 | Operative Note ---
DATE OF OPERATION: 11/27/2020 PREOPERATIVE DIAGNOSIS: Two-week old trauma wound left medial mid thigh region. POSTOPERATIVE DIAGNOSES: 1. Two-week old trauma wound left medial mid thigh region 2. Old hematoma with skin and fat, muscle necrosis and blunt vascular trauma around superficial femoral artery. Perivascular hematoma around the artery and under the wound edges. 3. The patient underwent repair of this trauma wounds initially on 11/04/2020. A triangular laceration, avulsion of the flap was sutured in emergency room. This has since necrosed leading to this wound, which required further debridement in the operating room. WOUND DIMENSIONS: 8 x 12 x 3 cm with undermining of 3-5 cm around. The femoral artery is exposed in the wound and intraoperative Doppler confirmed pulsatile blood flow in the vessel. ESTIMATED BLOOD LOSS: 10 mL. INSTRUMENT COUNT: Count of swabs, instruments and needles reported to be correct. SPECIMENS: Sent for pathology and microbiology, cultures and sensitivities. PROCEDURE: Wound exploration, evacuation of hematoma, debridement, pulse lavage irrigation, intraoperative Doppler and open packing of the wound. PROCEDURE IN DETAIL: After obtaining informed consent, patient was taken to the operating room. She was already on IV fluids and we gave her intravenous antibiotics before commencement of surgery. Timeout was called. The left lower extremity was widely cleaned, prepped, and draped in the standard fashion. First, digital exploration of the wound was carried out and the demarcating, necrotic skin, subcutaneous tissue, adipose tissue, fascia and muscle was bluntly dissected and excised with pickup and Metzenbaum scissors. The pockets under the wound edges were evacuated. The exposed tubular structure was then palpated and found to be having pulsatile flow and there was some bright red oozing from the perivascular tissue. This was cleaned, washed and controlled with lap sponge. We carried out intraoperative Doppler interrogation of this structure. A pulsatile waveform and audible signal was detected. At this time, after confirmation of the nature of the wound, it was decided to clean this and cover this site with Surgicel, Xeroform gauze, Betadine-soaked Kerlix gauze and absorbent dressings. Postoperatively, I will see this patient on the floor. We discussed the situation with the hospitalist physician, nursing staff and will try to expedite her evaluation by a vascular surgeon. She is wound will need further management, treatment, surgery at a higher level of care. I spoke with patient's daughter, Audra, who was in the patient's room after the surgery. Her telephone number [phone]. I have updated the patient and her daughter about the intraoperative findings and the expected plan of treatment going forwards. VD:yobani Job ID: [id number] Doc ID: [id number] Kp Tucker MD MTDD
[2020-11-28] MEDS: SENNOSIDES 1 TABLET PO SCH (21:37)
[2020-11-28] MEDS: OXANDROLONE 2.5 MG TABLET PO SCH (22:47)
[2020-11-29] MEDS: 0.9 % SODIUM CHLORIDE 10 ML SYRINGE IV SCH ×5 (05:44→21:52)
[2020-11-29] MEDS: metroNIDAZOLE 500 MG/100 ML BAG IV SCH ×3 (05:44→21:53)
[2020-11-29 06:49] LABS: Basophils # (Auto) 0.03 K/mcL (0.00-0.20); Basophils % (Auto) 0.4 % (0.0-2.0); Eosinophils # (Auto) 0.08 K/mcL (0.00-0.70); Hematocrit 25.8 % (36.0-48.0); Hemoglobin 8.2 g/dL (12.0-15.0); Lymphocytes # (Auto) 1.25 K/mcL (1.50-4.80); Lymphocytes % (Auto) 16.1 % (15.0-49.0); Mean Cell Volume 89.3 fL (80.0-100.0); Mean Corpuscular HGB Conc 31.8 g/dL (31.0-36.0); Mean Platelet Volume 11.3 fL (7.4-10.4); Monocytes # (Auto) 0.46 K/mcL (0.10-0.90); Monocytes % (Auto) 5.9 % (1.0-12.0); Neutrophils % (Auto) 76.6 % (38.0-78.0); Platelet Count 203 K/mcL (140-440); RBC 2.89 M/mcL (4.00-5.20); Red Cell Distribution Width 13.2 % (11.5-14.5); WBC 7.8 K/mcL (4.5-11.0)
[2020-11-29 07:18] LABS: ALT/SGPT < 5 U/L (<40); AST/SGOT 12 U/L (<32); Albumin 2.7 gm/dL (3.2-5.2); Albumin/Globulin Ratio 0.9 (1.0-2.3); Alkaline Phosphatase 38 U/L (39-117); Bilirubin,Total < 0.2 mg/dL (0.1-1.0); Blood Urea Nitrogen 32 mg/dL (8-23); Calcium 8.5 mg/dL (8.6-10.4); Carbon Dioxide 22 mmol/L (22-30); Chloride 106 mmol/L (96-108); Globulin 2.9 gm/dL (2.2-3.7); Glomerular Filtration Rate 32; Glucose 98 mg/dL (70-105)
[2020-11-29] MEDS: OXANDROLONE 2.5 MG TABLET PO SCH ×2 (09:25→21:51)
[2020-11-29] MEDS: DOCUSATE SODIUM 100 MG CAPSULE PO SCH ×2 (09:26→21:52)
[2020-11-29] MEDS: BISOPROLOL 5 MG TABLET PO SCH ×2 (09:26→21:51)
--- NOTE | 2020-11-29 10:41 | Internal Med Progress Note ---
SUBJECTIVE Subjective Patient information: Note initiated : 11/29/20 at 10:36 am Service Date, if different from initiated Date: [] Patient: Pham Kelly 85 y/o F admitted on 11/27/20 for wound to left thigh infected. Chief Complaint: [] Interval history: Ms. Kelly is a 85 year old female with a history of hypertension and a left thigh wound sustained about 3 weeks ago after being trampled by a cow now presenting to the ED for surgery which is planned for tomorrow. Internal medicine has been asked to admit the patient. The patient denies fevers, she has been on multiple courses of antibiotics initially with Keflex then ciprofloxacin with no significant improvement in the wound. She denies changes in sensation or motor function in the left lower extremity. In the ED, the patient did not have leukocytosis, creatinine was 1.8, CRP 2.3. A CT scan of the left lower extremity without contrast showed a 7 cm cutaneous ulceration in the medial thigh with mild underlying cellulitis no evidence of underlying abscess, myositis, fasciitis, no evidence of osteomyelitis. 11/27 I&D today-possible femoral artery compromise, Dr. Philip consulting with vascular surgery. 11/28 Awaiting vascular surgery evaluation. Nutrition consulted to optimize nutrition for wound healing. 11/29 Vascular surgery feels the structure in question is a muscle/tendon, not vascular therefore no surgery will be required. The plan is for wound care, probably antibiotics, eventually reconstruction including a skin graft. Wound culture are not growing any organisms, the patient was receiving oral ciprofloxacin prior to admission. Physical exam Head: Atraumatic, normal inspection. Eyes: normal appearance, no scleral icterus. Neck: full ROM Respiratory: no respiratory distress. Cardiovascular: normal rate and rhythm, S1, S2. GI/Abdominal: soft, nontender, no guarding. Extremities: large wound on medial left thigh covered in clean bandage Neurological: CN II-XII intact, intact motor, intact sensation. Psychiatric: normal mood. Skin: warm, normal color Constitutional Vitals: Vital Signs Temp Pulse Resp BP Pulse Ox 98.5 F 60 16 127/53 97 11/29/20 07:04 11/29/20 07:04 11/29/20 07:04 11/29/20 07:04 11/29/20 07:04 Period Temp Pulse Resp BP Sys/Restrepo Pulse Ox Last 24 Hr 96.5 F-98.5 F 60-68 14-16 118-137/53-75 93-97 Intake and Output 11/28/20 11/29/20 11/29/20 21:59 05:59 13:59 Intake Total 100 480 100 Output Total 800 225 175 Balance -700 255 -75 Weight 57.805 kg Intake & Output: Intake & Output 11/28/20 11/29/20 11/29/20 21:59 05:59 13:59 Intake Total 100 480 100 Output Total 800 225 175 Balance -700 255 -75 Weight 57.805 kg Intake: IV 100 100 100 Oral 380 Output: Void Amount 800 225 175 Other: Urine Appearance Clear Clear Urine Color Dark Yellow Dark Yellow Dark Yellow OBJ DATA Labs CBC & Chem 7: 11/29/20 05:47 11/29/20 05:47 Labs: Abnormal Lab Results 11/29/20 11/29/20 11/28/20 05:47 05:47 13:49 RBC 2.89 L Hgb 8.2 L 8.7 L Hct 25.8 L POC Hct MPV 11.3 H Neut % (Auto) Lymph % (Auto) Lymph # (Auto) 1.25 L Seg Neutrophils % ESR Carbon Dioxide POC BUN BUN 32 H Creatinine 1.5 H POC Creatinine Glucose Calcium 8.5 L Ionized Calcium Alex Alkaline Phosphatase 38 L C-Reactive Protein 1.20 H Total Protein 5.6 L Albumin 2.7 L Albumin/Globulin Ratio 0.9 L Prealbumin Procalcitonin Urine Ketones Urine Mucus 11/28/20 11/28/20 11/28/20 05:26 05:26 05:26 RBC 3.11 L Hgb 8.7 L Hct 28.1 L POC Hct MPV 11.2 H Neut % (Auto) 90.6 H Lymph % (Auto) 6.8 L Lymph # (Auto) 0.54 L Seg Neutrophils % ESR Carbon Dioxide 21 L POC BUN BUN 31 H Creatinine 1.6 H POC Creatinine Glucose 139 H Calcium Ionized Calcium Alex 1.14 L Alkaline Phosphatase C-Reactive Protein 2.60 H Total Protein Albumin Albumin/Globulin Ratio Prealbumin 11.2 L Procalcitonin 0.16 H Urine Ketones Urine Mucus 11/27/20 11/26/20 11/26/20 05:21 20:20 12:12 RBC 3.57 L Hgb 10.3 L Hct 32.1 L POC Hct MPV 11.7 H Neut % (Auto) Lymph % (Auto) Lymph # (Auto) Seg Neutrophils % 79 H ESR 79 H Carbon Dioxide POC BUN BUN 30 H Creatinine 1.5 H POC Creatinine Glucose Calcium Ionized Calcium Alex Alkaline Phosphatase C-Reactive Protein Total Protein Albumin Albumin/Globulin Ratio Prealbumin Procalcitonin Urine Ketones 5 A Urine Mucus Few A 11/26/20 11:45 RBC Hgb Hct POC Hct 32 L MPV Neut % (Auto) Lymph % (Auto) Lymph # (Auto) Seg Neutrophils % ESR Carbon Dioxide POC BUN 29 H BUN 28 H Creatinine 1.8 H POC Creatinine 2.0 H Glucose Calcium Ionized Calcium Alex Alkaline Phosphatase C-Reactive Protein 2.30 H Total Protein Albumin Albumin/Globulin Ratio Prealbumin Procalcitonin Urine Ketones Urine Mucus Meds: Medications Acetaminophen (Acetaminophen 325 Mg Tablet) 650 mg PO Q6HP PRN; Protocol PRN Reason: Per Pain Protocol/Fever > 101 Last Admin: 11/28/20 22:40 Dose: 650 mg Documented by: Bisoprolol Fumarate (Bisoprolol 5 Mg Tablet) 2.5 mg PO BID [facility] Last Admin: 11/29/20 09:26 Dose: 2.5 mg Documented by: Docusate Sodium (Docusate Sodium 100 Mg Capsule) 100 mg PO BID [facility] Last Admin: 11/29/20 09:26 Dose: 100 mg Documented by: Metronidazole (Flagyl) 500 mg in 100 mls @ 100 mls/hr IV Q8H [facility]; Protocol Last Infusion: 11/29/20 06:44 Dose: Infused Documented by: Ceftriaxone Sodium 2 gm/ (Dextrose) 50 mls @ 100 mls/hr IV Q24H [facility] Last Infusion: 11/28/20 10:10 Dose: Infused Documented by: Ondansetron HCl (Ondansetron 4 Mg/2 Ml Vial) 4 mg IV Q6HP PRN PRN Reason: Nausea And Vomiting Oxandrolone (Oxandrolone 2.5 Mg Tablet) 5 mg PO BID [facility] Last Admin: 11/29/20 09:25 Dose: Not Given Documented by: Oxycodone/Acetaminophen (Oxycodone/Apap 5/325mg Tablet) 1 tab PO Q4-6HP PRN; Protocol PRN Reason: Per Pain Protocol Senna (Sennosides 1 Tablet) 2 tab PO HS [facility] Last Admin: 11/28/20 21:37 Dose: Not Given Documented by: Sodium Chloride (0.9 % Sodium Chloride 10 Ml Syringe) 10 ml IV Q8 [facility] Last Admin: 11/29/20 05:44 Dose: 10 ml Documented by: A/P Narrative A/P Narrative: Assessment: 85 year old female with hypertension and nonhealing left thigh wound from wound sustained after being crushed by a cow admitted for surgical management. The patient had I&D on 11/27/20, there were concerns the femoral artery may be compromised however after vacular surgery came from [place] for a courtesy consult it was felt to be a muscle tendon masquerading as an artery. The patient is currently on IV antibiotics and receiving wound cares. The plan will be to place a wound VAC and eventually a skin graft will be required for closure. #Nonhealing left thigh wound s/p I&D 11/27/20 #Anemia-downtrending hemoglobin #Elevated creatine - likely CKD, less likely HARI #Hypertension, stable off meds. Plan -Dr. Philip following for complex wound care. -Ceftriaxone and Flagyl IV for now. -Follow hemoglobin, monitor for bleed. -Hold home Triamterene-Hydrochlorothiazide for normal blood pressures. -Monitor renal function, avoid potentially nephrotoxic medications. -Regular diet. -Audio Technician consult. -PT/OT -Midline or difficult IV access. -Wound VAC planned by Dr. Purcell -Consult ID if the patient stays until Wednesday (Dr. Winters currently on vacation). -DVT ppx: heparin SQ -Code status: Full -Disposition: Home vs SNF, follow up with Dr. Philip and infectious disease. Time Spent With Patient Time: Total time spent is greater than 50% in coordination of care (as documented) at patient's floor/unit and/or counseling patient: QUALITY Stroke Symptom Onset Unknown: No VTE Deep Vein Thrombosis/Pulmonary Embolism Present on Admission: No
--- NOTE | 2020-11-29 11:41 | General Surgery Progress Note ---
SUBJECTIVE Subjective Patient information: Note initiated : 11/29/20 at 11:29 am Service Date, if different from initiated Date: [] Patient: Pham Kelly 85 y/o F admitted on 11/27/20 for wound to left thigh infected. Chief Complaint: [] Additional PMFSH (Level 3 Only): Patient had an uneventful night. Dressing over LEFT thigh is CDI. Constitutional Vitals: Vital Signs Temp Pulse Resp BP Pulse Ox 98.3 F 67 16 134/56 95 11/29/20 11:24 11/29/20 11:24 11/29/20 11:24 11/29/20 11:24 11/29/20 11:24 Period Temp Pulse Resp BP Sys/Restrepo Pulse Ox Last 24 Hr 96.5 F-98.5 F 60-68 14-16 118-137/53-75 93-97 Intake and Output 11/28/20 11/29/20 11/29/20 21:59 05:59 13:59 Intake Total 100 480 100 Output Total 800 225 175 Balance -700 255 -75 Weight 127 lb 7 oz Intake & Output: Intake & Output 11/28/20 11/29/20 11/29/20 21:59 05:59 13:59 Intake Total 100 480 100 Output Total 800 225 175 Balance -700 255 -75 Weight 127 lb 7 oz Intake: IV 100 100 100 Oral 380 Output: Void Amount 800 225 175 Other: Urine Appearance Clear Clear Urine Color Dark Yellow Dark Yellow Dark Yellow General appearance: cooperative and no acute distress Exam: AVSS: No changes KERI. Ambulating well. LEFT thigh dressing ( HB with absorbant gauze, Kerlix, Coban and JAYY.) Awaiting final wound and tissue cultures. On OXANDRIN for significant hypoproteinemia, Malnutrition. Tolerating regular diet. Ate 100% B/F today A/P Narrative A/P Narrative: Assessment: Satisfactory post surgical progress. Ongoing nutritional repletion / improvement. Await FINAL surgical tissue c/s, before determining antibiotic coverage. Anticipate D/C planning after week end . ( Patient lives by herself ) Patient can see Dr. Winters as OP / continue wound care f/u at clinic. She will need additional wound care GCB / Vashe VS and / or wound VAC, Plan: Spoke with patient and her daughter. Will modify her wound care as her condition evolves. She will need additional surgery SG etc until fully healed. Time Spent With Patient Time: Total time spent is greater than 50% in coordination of care (as documented) at patient's floor/unit and/or counseling patient: Total time spent with greater than 50% in coordination of care (as documented) at patient's floor/unit and/or counseling patient:: 15 - 24 minutes
--- NOTE | 2020-11-29 12:53 | Internal Med Progress Note ---
SUBJECTIVE Subjective Patient information: Note initiated : 11/29/20 at 12:50 pm Service Date, if different from initiated Date: [] Patient: Pham Kelly 85 y/o F admitted on 11/27/20 for wound to left thigh infected. Chief Complaint: [] Interval history: Ms. Kelly is a 85 year old female with a history of hypertension and a left thigh wound sustained about 3 weeks ago after being trampled by a cow now presenting to the ED for surgery which is planned for tomorrow. Internal medicine has been asked to admit the patient. The patient denies fevers, she has been on multiple courses of antibiotics initially with Keflex then ciprofloxacin with no significant improvement in the wound. She denies changes in sensation or motor function in the left lower extremity. In the ED, the patient did not have leukocytosis, creatinine was 1.8, CRP 2.3. A CT scan of the left lower extremity without contrast showed a 7 cm cutaneous ulceration in the medial thigh with mild underlying cellulitis no evidence of underlying abscess, myositis, fasciitis, no evidence of osteomyelitis. 11/27 I&D today-possible femoral artery compromise, Dr. Philip consulting with vascular surgery. 11/28 Awaiting vascular surgery evaluation. Nutrition consulted to optimize nutrition for wound healing. 11/29 Vascular surgery feels the structure in question is a muscle/tendon, not vascular therefore no surgery will be required. The plan is for wound care, probably antibiotics, eventually reconstruction including a skin graft. Wound culture are not growing any organisms, the patient was receiving oral ciprofloxacin prior to admission. 11/30 Constitutional Vitals: Vital Signs Temp Pulse Resp BP Pulse Ox 98.3 F 67 16 134/56 95 11/29/20 11:24 11/29/20 11:24 11/29/20 11:24 11/29/20 11:24 11/29/20 11:24 Period Temp Pulse Resp BP Sys/Restrepo Pulse Ox Last 24 Hr 97.1 F-98.5 F 60-68 14-16 118-137/53-75 93-97 Intake and Output 11/28/20 11/29/20 11/29/20 21:59 05:59 13:59 Intake Total 100 480 100 Output Total 800 225 175 Balance -700 255 -75 Weight 57.805 kg Intake & Output: Intake & Output 0711/29/20 11/29/20 21:59 05:59 13:59 Intake Total 100 480 100 Output Total 800 225 175 Balance -700 255 -75 Weight 57.805 kg Intake: IV 100 100 100 Oral 380 Output: Void Amount 800 225 175 Other: Urine Appearance Clear Clear Urine Color Dark Yellow Dark Yellow Dark Yellow Exam: General: Alert, Awake, No acute Distress Eyes/N/T: EOMI, Head/Neck: neck supple, CV: RRR, No murmurs, Pulm: Clear b/l, no wheezing/rhonchi/rales Abd: soft, nontender, +BS x4 Ext: large wound on medial left thigh covered in clean bandage Neuro: Alert, no focal deficits, moves all extremities, Skin: warm/dry OBJ DATA Labs CBC & Chem 7: 11/29/20 05:47 11/29/20 05:47 Labs: Abnormal Lab Results 11/29/20 11/29/20 11/28/20 05:47 05:47 13:49 RBC 2.89 L Hgb 8.2 L 8.7 L Hct 25.8 L MPV 11.3 H Neut % (Auto) Lymph % (Auto) Lymph # (Auto) 1.25 L Seg Neutrophils % ESR Carbon Dioxide BUN 32 H Creatinine 1.5 H Glucose Calcium 8.5 L Ionized Calcium Alex Alkaline Phosphatase 38 L C-Reactive Protein 1.20 H Total Protein 5.6 L Albumin 2.7 L Albumin/Globulin Ratio 0.9 L Prealbumin Procalcitonin Urine Ketones Urine Mucus 11/28/20 11/28/20 11/28/20 05:26 05:26 05:26 RBC 3.11 L Hgb 8.7 L Hct 28.1 L MPV 11.2 H Neut % (Auto) 90.6 H Lymph % (Auto) 6.8 L Lymph # (Auto) 0.54 L Seg Neutrophils % ESR Carbon Dioxide 21 L BUN 31 H Creatinine 1.6 H Glucose 139 H Calcium Ionized Calcium Alex 1.14 L Alkaline Phosphatase C-Reactive Protein 2.60 H Total Protein Albumin Albumin/Globulin Ratio Prealbumin 11.2 L Procalcitonin 0.16 H Urine Ketones Urine Mucus 11/27/20 11/26/20 11/26/20 05:21 20:20 12:12 RBC 3.57 L Hgb 10.3 L Hct 32.1 L MPV 11.7 H Neut % (Auto) Lymph % (Auto) Lymph # (Auto) Seg Neutrophils % 79 H ESR 79 H Carbon Dioxide BUN 30 H Creatinine 1.5 H Glucose Calcium Ionized Calcium Alex Alkaline Phosphatase C-Reactive Protein Total Protein Albumin Albumin/Globulin Ratio Prealbumin Procalcitonin Urine Ketones 5 A Urine Mucus Few A 11/26/20 11:45 RBC Hgb Hct MPV Neut % (Auto) Lymph % (Auto) Lymph # (Auto) Seg Neutrophils % ESR Carbon Dioxide BUN 28 H Creatinine 1.8 H Glucose Calcium Ionized Calcium Alex Alkaline Phosphatase C-Reactive Protein 2.30 H Total Protein Albumin Albumin/Globulin Ratio Prealbumin Procalcitonin Urine Ketones Urine Mucus Meds: Medications Acetaminophen (Acetaminophen 325 Mg Tablet) 650 mg PO Q6HP PRN; Protocol PRN Reason: Per Pain Protocol/Fever > 101 Last Admin: 11/28/20 22:40 Dose: 650 mg Documented by: Bisoprolol Fumarate (Bisoprolol 5 Mg Tablet) 2.5 mg PO BID [facility] Last Admin: 11/29/20 09:26 Dose: 2.5 mg Documented by: Docusate Sodium (Docusate Sodium 100 Mg Capsule) 100 mg PO BID [facility] Last Admin: 11/29/20 09:26 Dose: 100 mg Documented by: Heparin Sodium (Porcine) (Heparin 5,000 Unit/Ml Vial) 5,000 unit SQ Q12 [facility] Heparin Sodium (Porcine) (Heparin Flush 10 Units/Ml 5 Ml Syringe) 2 ml IV Q12 [facility] Last Admin: 11/29/20 10:58 Dose: Not Given Documented by: Metronidazole (Flagyl) 500 mg in 100 mls @ 100 mls/hr IV Q8H [facility]; Protocol Last Infusion: 11/29/20 06:44 Dose: Infused Documented by: Ceftriaxone Sodium 2 gm/ (Dextrose) 50 mls @ 100 mls/hr IV Q24H [facility] Last Infusion: 11/28/20 10:10 Dose: Infused Documented by: Ondansetron HCl (Ondansetron 4 Mg/2 Ml Vial) 4 mg IV Q6HP PRN PRN Reason: Nausea And Vomiting Oxandrolone (Oxandrolone 2.5 Mg Tablet) 5 mg PO BID [facility] Last Admin: 11/29/20 09:25 Dose: Not Given Documented by: Oxycodone/Acetaminophen (Oxycodone/Apap 5/325mg Tablet) 1 tab PO Q4-6HP PRN; Protocol PRN Reason: Per Pain Protocol Senna (Sennosides 1 Tablet) 2 tab PO HS [facility] Last Admin: 11/28/20 21:37 Dose: Not Given Documented by: Sodium Chloride (0.9 % Sodium Chloride 10 Ml Syringe) 10 ml IV Q8 [facility] Last Admin: 11/29/20 05:44 Dose: 10 ml Documented by: Sodium Chloride (0.9 % Sodium Chloride 10 Ml Syringe) 10 ml IV Q12 [facility] Last Admin: 11/29/20 10:58 Dose: Not Given Documented by: A/P Narrative A/P Narrative: A: #Nonhealing left thigh wound: s/p I&D (11/27) #Anemia: downtrending hemoglobin #Elevated creatine: likely CKD, less likely HARI #Hypertension: stable off meds. Plan: -Dr. Philip following for complex wound care / wound vac -Ceftriaxone and Flagyl IV for now. -Follow hemoglobin, monitor for bleed. -Hold home Triamterene-Hydrochlorothiazide for normal blood pressures. -Monitor renal function, avoid potentially nephrotoxic medications. -Poultry Farm Worker consult -PT/OT -Midline or difficult IV access. -Consult ID if the patient stays until Wednesday (Dr. Winters currently on vacation). -CM for SNF vs Home vs Swing -DVT ppx: heparin SQ -Code status: Yeast Washer Spent With Patient Time: Total time spent is greater than 50% in coordination of care (as documented) at patient's floor/unit and/or counseling patient: QUALITY Stroke Symptom Onset Unknown: No VTE Deep Vein Thrombosis/Pulmonary Embolism Present on Admission: No
--- NOTE | 2020-11-29 15:31 | Surgical Pathology Report ---
Histology Microscopic Diagnosis Specimen A- LEFT THIGH WOUND, EXCISION: --- BENIGN ADIPOSE WITH FIBROSIS, GRANULATION TISSUE, ACUTE INFLAMMATION AND BACTERIAL FORMS. --- NO ATYPIA OR MALIGNANCY IDENTIFIED. Gross Description Received in formalin labeled left thigh wound, are five fragments of yellow-almeida to irizarry-almeida tissue ranging in size from 1.0 x 1.1 x 0.4 cm up to 7.9 x 4.5 x 0.2 cm. Customer Relations Representative portions are submitted in two cassettes. ([id number]:[id number]) Electronically Signed Doreen Torres MD, FCAP Electronically Signed 11/29/2020 15:30
[2020-11-29] MEDS: cefTRIAXone 2 GM in DEXTROSE 5% IN WATER 50 ML IV SCH (15:34)
[2020-11-29] MEDS: SENNOSIDES 1 TABLET PO SCH (21:52)
[2020-11-29] MEDS: HEPARIN 5,000 UNIT/ML VIAL SQ SCH (21:54)
[2020-11-30] MEDS: metroNIDAZOLE 500 MG/100 ML BAG IV SCH ×3 (05:19→21:36)
[2020-11-30] MEDS: 0.9 % SODIUM CHLORIDE 10 ML SYRINGE IV SCH ×5 (05:20→21:36)
[2020-11-30 06:25] LABS: Basophils # (Auto) 0.03 K/mcL (0.00-0.20); Basophils % (Auto) 0.4 % (0.0-2.0); Eosinophils # (Auto) 0.16 K/mcL (0.00-0.70); Eosinophils % (Auto) 1.9 % (0.0-7.0); Hematocrit 31.2 % (36.0-48.0); Hemoglobin 10.1 g/dL (12.0-15.0); Lymphocytes # (Auto) 1.54 K/mcL (1.50-4.80); Lymphocytes % (Auto) 18.5 % (15.0-49.0); Mean Cell Volume 87.9 fL (80.0-100.0); Mean Corpuscular HGB Conc 32.4 g/dL (31.0-36.0); Mean Platelet Volume 11.8 fL (7.4-10.4); Monocytes # (Auto) 0.55 K/mcL (0.10-0.90); Monocytes % (Auto) 6.6 % (1.0-12.0); Neutrophils % (Auto) 72.6 % (38.0-78.0); Platelet Count 244 K/mcL (140-440); RBC 3.55 M/mcL (4.00-5.20); Red Cell Distribution Width 13.4 % (11.5-14.5); WBC 8.3 K/mcL (4.5-11.0)
[2020-11-30 07:04] LABS: ALT/SGPT 6 U/L (<40); AST/SGOT 16 U/L (<32); Albumin 3.3 gm/dL (3.2-5.2); Albumin/Globulin Ratio 1.1 (1.0-2.3); Alkaline Phosphatase 42 U/L (39-117); Bilirubin,Direct < 0.2 mg/dL (0-0.3); Bilirubin,Total 0.2 mg/dL (0.1-1.0); Blood Urea Nitrogen 25 mg/dL (8-23); Calcium 8.9 mg/dL (8.6-10.4); Carbon Dioxide 22 mmol/L (22-30); Chloride 102 mmol/L (96-108); Glomerular Filtration Rate 41; Glucose 94 mg/dL (70-105); Lactate Dehydrogenase 148 U/L (135-225); Phosphorous 3.1 mg/dL (2.5-4.5); Triglycerides 105 mg/dL (<150); Uric Acid 5.6 mg/dL (2.5-8.0)
--- NOTE | 2020-11-30 07:04 | Internal Med Progress Note ---
SUBJECTIVE Subjective Patient information: Note initiated : 11/30/20 at 7:02 am Service Date, if different from initiated Date: [] Patient: Pham Kelly 85 y/o F admitted on 11/27/20 for wound to left thigh infected. Chief Complaint: [] Interval history: Ms. Kelly is a 85 year old female with a history of hypertension and a left thigh wound sustained about 3 weeks ago after being trampled by a cow now presenting to the ED for surgery which is planned for tomorrow. Internal medicine has been asked to admit the patient. The patient denies fevers, she has been on multiple courses of antibiotics initially with Keflex then ciprofloxacin with no significant improvement in the wound. She denies changes in sensation or motor function in the left lower extremity. In the ED, the patient did not have leukocytosis, creatinine was 1.8, CRP 2.3. A CT scan of the left lower extremity without contrast showed a 7 cm cutaneous ulceration in the medial thigh with mild underlying cellulitis no evidence of underlying abscess, myositis, fasciitis, no evidence of osteomyelitis. 11/27 I&D today-possible femoral artery compromise, Dr. Philip consulting with vascular surgery. 11/28 Awaiting vascular surgery evaluation. Nutrition consulted to optimize nutrition for wound healing. 11/29 Vascular surgery feels the structure in question is a muscle/tendon, not vascular therefore no surgery will be required. The plan is for wound care, probably antibiotics, eventually reconstruction including a skin graft. Wound culture are not growing any organisms, the patient was receiving oral ciprofloxacin prior to admission. 11/30 Patient poor sleep last night partly from diarrhea from laxatives. Otherwise no complaints. Pending cultures and Dr. Tucker treatments. Review of Systems: denies headache/fever/chills/nausea/vomiting/chest or abdominal pain/cough/dyspnea/diarrhea. Otherwise see above. Constitutional Vitals: Vital Signs Temp Pulse Resp BP Pulse Ox 97.0 F 67 16 142/71 94 11/30/20 03:49 11/30/20 03:49 11/30/20 03:49 11/30/20 03:49 11/30/20 03:49 Period Temp Pulse Resp BP Sys/Restrepo Pulse Ox Last 24 Hr 97.0 F-98.5 F 60-71 - 127-142/53-75 94-97 Intake and Output 11/29/20 11/30/20 11/30/20 21:59 05:59 13:59 Intake Total 390 300 100 Output Total 150 Balance 390 150 100 Weight 57.47 kg Intake & Output: Intake & Output 11/29/20 11/30/20 11/30/20 21:59 05:59 13:59 Intake Total 390 300 100 Output Total 150 Balance 390 150 100 Weight 57.47 kg Intake: IV 150 100 100 Rocephin 2 gm In Dextrose 5% in 50 Water 50 ml @ 100 mls/hr IV Q24H [facility] Rx#:[id number] Oral 240 200 Output: Void Amount 150 Other: # Voids 1 # Bowel Movements 1 Exam: General: Alert, Awake, No acute Distress Eyes/N/T: EOMI, Head/Neck: neck supple, CV: RRR, No murmurs, Pulm: Clear b/l, no wheezing/rhonchi/rales Abd: soft, nontender, +BS x4 Ext: large wound on medial left thigh covered in clean bandage Neuro: Alert, no focal deficits, moves all extremities, Skin: warm/dry OBJ DATA Labs CBC & Chem 7: 11/30/20 05:34 11/30/20 05:34 Labs: Abnormal Lab Results 11/30/20 11/29/20 11/29/20 05:34 05:47 05:47 RBC 3.55 L 2.89 L Hgb 10.1 L 8.2 L Hct 31.2 L 25.8 L MPV 11.8 H 11.3 H Neut % (Auto) Lymph % (Auto) Lymph # (Auto) 1.25 L Carbon Dioxide BUN 32 H Creatinine 1.5 H Glucose Calcium 8.5 L Ionized Calcium Alex Alkaline Phosphatase 38 L C-Reactive Protein 1.20 H Total Protein 5.6 L Albumin 2.7 L Albumin/Globulin Ratio 0.9 L Prealbumin Procalcitonin 11/28/20 11/28/20 11/28/20 13:49 05:26 05:26 RBC Hgb 8.7 L Hct MPV Neut % (Auto) Lymph % (Auto) Lymph # (Auto) Carbon Dioxide 21 L BUN 31 H Creatinine 1.6 H Glucose 139 H Calcium Ionized Calcium Alex 1.14 L Alkaline Phosphatase C-Reactive Protein 2.60 H Total Protein Albumin Albumin/Globulin Ratio Prealbumin 11.2 L Procalcitonin 0.16 H 11/28/20 11/27/20 05:26 05:21 RBC 3.11 L Hgb 8.7 L Hct 28.1 L MPV 11.2 H Neut % (Auto) 90.6 H Lymph % (Auto) 6.8 L Lymph # (Auto) 0.54 L Carbon Dioxide BUN 30 H Creatinine 1.5 H Glucose Calcium Ionized Calcium Alex Alkaline Phosphatase C-Reactive Protein Total Protein Albumin Albumin/Globulin Ratio Prealbumin Procalcitonin Meds: Medications Acetaminophen (Acetaminophen 325 Mg Tablet) 650 mg PO Q6HP PRN; Protocol PRN Reason: Per Pain Protocol/Fever > 101 Last Admin: 11/28/20 22:40 Dose: 650 mg Documented by: Bisoprolol Fumarate (Bisoprolol 5 Mg Tablet) 2.5 mg PO BID [facility] Last Admin: 11/29/20 21:51 Dose: 2.5 mg Documented by: Docusate Sodium (Docusate Sodium 100 Mg Capsule) 100 mg PO BID [facility] Last Admin: 11/29/20 21:52 Dose: 100 mg Documented by: Heparin Sodium (Porcine) (Heparin 5,000 Unit/Ml Vial) 5,000 unit SQ Q12 [facility] Last Admin: 11/29/20 21:54 Dose: 5,000 unit Documented by: Heparin Sodium (Porcine) (Heparin Flush 10 Units/Ml 5 Ml Syringe) 2 ml IV Q12 [facility] Last Admin: 11/29/20 21:53 Dose: Not Given Documented by: Metronidazole (Flagyl) 500 mg in 100 mls @ 100 mls/hr IV Q8H [facility]; Protocol Last Infusion: 11/30/20 06:44 Dose: Infused Documented by: Ceftriaxone Sodium 2 gm/ (Dextrose) 50 mls @ 100 mls/hr IV Q24H [facility] Last Infusion: 11/29/20 17:16 Dose: Infused Documented by: Ondansetron HCl (Ondansetron 4 Mg/2 Ml Vial) 4 mg IV Q6HP PRN PRN Reason: Nausea And Vomiting Oxandrolone (Oxandrolone 2.5 Mg Tablet) 5 mg PO BID [facility] Last Admin: 11/29/20 21:51 Dose: Not Given Documented by: Oxycodone/Acetaminophen (Oxycodone/Apap 5/325mg Tablet) 1 tab PO Q4-6HP PRN; Protocol PRN Reason: Per Pain Protocol Senna (Sennosides 1 Tablet) 2 tab PO HS [facility] Last Admin: 11/29/20 21:52 Dose: 2 tab Documented by: Sodium Chloride (0.9 % Sodium Chloride 10 Ml Syringe) 10 ml IV Q8 [facility] Last Admin: 11/30/20 05:20 Dose: 10 ml Documented by: Sodium Chloride (0.9 % Sodium Chloride 10 Ml Syringe) 10 ml IV Q12 [facility] Last Admin: 11/29/20 21:51 Dose: Not Given Documented by: A/P Narrative A/P Narrative: A: #Nonhealing left thigh wound: s/p I&D (11/27) #Anemia: stable #Elevated creatine: likely CKD, stable #Hypertension: stable off meds Plan: -Dr. Philip following for complex wound care / wound vac -Ceftriaxone and Flagyl IV for now -cont home BB, diuretics (Triamterene-Hydrochlorothiazide) initially restart in AM -Monitor renal function, avoid potentially nephrotoxic medications. -Radiographer consult -PT/OT -Midline for difficult IV access. -Consult ID if the patient stays until Wednesday (Dr. Winters currently on vacation). -CM for SNF vs Home vs Swing -DVT ppx: heparin SQ -Code status: Addictions Counselor Assistant Spent With Patient Time: Total time spent is greater than 50% in coordination of care (as documented) at patient's floor/unit and/or counseling patient: QUALITY Stroke Symptom Onset Unknown: No VTE Deep Vein Thrombosis/Pulmonary Embolism Present on Admission: No
[2020-11-30] MEDS: BISOPROLOL 5 MG TABLET PO SCH ×2 (08:58→21:35)
[2020-11-30] MEDS: DOCUSATE SODIUM 100 MG CAPSULE PO SCH ×2 (08:58→21:35)
[2020-11-30] MEDS: OXANDROLONE 2.5 MG TABLET PO SCH ×2 (09:03→21:36)
[2020-11-30] MEDS: cefTRIAXone 2 GM in DEXTROSE 5% IN WATER 50 ML IV SCH (09:09)
[2020-11-30] MEDS: HEPARIN 5,000 UNIT/ML VIAL SQ SCH ×2 (09:10→21:35)
--- NOTE | 2020-11-30 12:06 | General Surgery Progress Note ---
SUBJECTIVE Subjective Patient information: Note initiated : 11/30/20 at 12:00 pm Service Date, if different from initiated Date: [] Patient: Pham Kelly 85 y/o F admitted on 11/27/20 for wound to left thigh infected. Chief Complaint:Patient is NOT in room. Ambulating. Progress reviewed with Janeen LOPEZ and Dr. Guidry. Hospitalist. Patient had an uneventful night. Tolerating diet. Dressings CDI. Continues to be on IV antibiotics. [] Constitutional Vitals: Vital Signs Temp Pulse Resp BP Pulse Ox 97.6 F 72 18 149/69 96 11/30/20 11:27 11/30/20 11:27 11/30/20 11:27 11/30/20 11:27 11/30/20 11:27 Period Temp Pulse Resp BP Sys/Restrepo Pulse Ox Last 24 Hr 97.0 F-97.6 F 64-72 16-18 134-152/60-75 94-97 Intake and Output 11/29/20 11/30/20 11/30/20 21:59 05:59 13:59 Intake Total 390 300 150 Output Total 150 Balance 390 150 150 Weight 126 lb 11.2 oz Intake & Output: Intake & Output 11/29/20 11/30/20 11/30/20 21:59 05:59 13:59 Intake Total 390 300 150 Output Total 150 Balance 390 150 150 Weight 126 lb 11.2 oz Intake: IV 150 100 150 Rocephin 2 gm In Dextrose 5% in 50 50 Water 50 ml @ 100 mls/hr IV Q24H [facility] Rx#:[id number] Oral 240 200 Output: Void Amount 150 Other: Meal Breakfast Percent of Meal Consumed 50% Feeding Ability Independent Stool Size Smear Stool Consistency Loose # Voids 1 1 # Bowel Movements 1 1 Exam: No interval changes since yesterday. Labs reviewed. Creatinine is Normal. HCT > 30 Final operative wound c/s sensitivities awaited. A/P Narrative A/P Narrative: Assessment: PO Day #3. Satisfactory progress. Malnutrition: Anemia improving. Post op wound care is ongoing. Plan: Check wound on Wednesday12/02/2020 D/C planning and continuity of care later. Time Spent With Patient Time: Total time spent is greater than 50% in coordination of care (as documented) at patient's floor/unit and/or counseling patient: Total time spent with greater than 50% in coordination of care (as documented) at patient's floor/unit and/or counseling patient:: less than 15 minutes
--- NOTE | 2020-11-30 15:25 | EKG ---
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 Measurements Intervals Fielding Rate: 79 P: 53 AR: 172 QRS: 13 QRSD: 80 T: 25 QT: 380 QTc: 436 Interpretive Statements SINUS RHYTHM BORDERLINE T ABNORMALITIES, ANTERIOR LEADS NO PRIOR TRACING FOUND IN [facility] BORDERLINE TRACING Electronically Signed On 11-30-2020 15:25:12 PDT by Juwan Macedo M.D. /[email or web address]/[email or web address]/[id number]
[2020-11-30] MEDS ORDERED: diphenhydrAMINE 25 MG CAPSULE PO PRN (15:56)
[2020-11-30] MEDS: MELATONIN 3 MG TABLET PO SCH (21:35)
[2020-11-30] MEDS: SENNOSIDES 1 TABLET PO SCH (21:36)
[2020-12-01] MEDS: metroNIDAZOLE 500 MG/100 ML BAG IV SCH (05:55)
[2020-12-01] MEDS: 0.9 % SODIUM CHLORIDE 10 ML SYRINGE IV SCH ×5 (05:55→21:55)
[2020-12-01] MEDS ORDERED: hydrALAZINE 20 MG/ML VIAL IV PRN (07:11)
--- NOTE | 2020-12-01 07:11 | Internal Med Progress Note ---
SUBJECTIVE Subjective Patient information: Note initiated : 12/01/20 at 7:09 am Service Date, if different from initiated Date: [] Patient: Pham Kelly 85 y/o F admitted on 11/27/20 for wound to left thigh infected. Chief Complaint: [] Interval history: Ms. Kelly is a 85 year old female with a history of hypertension and a left thigh wound sustained about 3 weeks ago after being trampled by a cow now presenting to the ED for surgery which is planned for tomorrow. Internal medicine has been asked to admit the patient. The patient denies fevers, she has been on multiple courses of antibiotics initially with Keflex then ciprofloxacin with no significant improvement in the wound. She denies changes in sensation or motor function in the left lower extremity. In the ED, the patient did not have leukocytosis, creatinine was 1.8, CRP 2.3. A CT scan of the left lower extremity without contrast showed a 7 cm cutaneous ulceration in the medial thigh with mild underlying cellulitis no evidence of underlying abscess, myositis, fasciitis, no evidence of osteomyelitis. 11/27 I&D today-possible femoral artery compromise, Dr. Philip consulting with vascular surgery. 11/28 Awaiting vascular surgery evaluation. Nutrition consulted to optimize nutrition for wound healing. 11/29 Vascular surgery feels the structure in question is a muscle/tendon, not vascular therefore no surgery will be required. The plan is for wound care, probably antibiotics, eventually reconstruction including a skin graft. Wound culture are not growing any organisms, the patient was receiving oral ciprofloxacin prior to admission. 11/30 Patient poor sleep last night partly from diarrhea from laxatives. Otherwise no complaints. Pending cultures and Dr. Tucker treatments. 12/01 Patient states the antibiotics are giving her nausea and upset stomach. She had poor sleep took melatonin but did not get the Benadryl. Will change IV Rocephin to Levaquin and see if that makes a difference. Review of Systems: denies headache/fever/chills/vomiting/chest or abdominal pain/cough/dyspnea/diarrhea. Otherwise see above. Constitutional Vitals: Vital Signs Temp Pulse Resp BP Pulse Ox 98.1 F 68 16 158/75 96 12/01/20 03:44 12/01/20 03:44 12/01/20 03:44 12/01/20 03:44 12/01/20 03:44 Period Temp Pulse Resp BP Sys/Restrepo Pulse Ox Last 24 Hr 97.1 F-98.9 F 64-75 14-18 140-158/60-75 93-97 Intake and Output 11/30/20 12/01/20 12/01/20 21:59 05:59 13:59 Intake Total 300 200 Output Total 500 Balance 300 -300 Weight 59.239 kg Intake & Output: Intake & Output 11/30/20 12/01/20 12/01/20 21:59 05:59 13:59 Intake Total 300 200 Output Total 500 Balance 300 -300 Weight 59.239 kg Intake: IV 100 100 Oral 200 100 Output: Void Amount 500 Other: Meal Dinner Percent of Meal Consumed 75% Stool Consistency Loose # Bowel Movements 1 Exam: General: Alert, Awake, No acute Distress Eyes/N/T: EOMI, Head/Neck: neck supple, CV: RRR, No murmurs, Pulm: Clear b/l, no wheezing/rhonchi/rales Abd: soft, nontender, +BS x4 Ext: large wound on medial left thigh covered in clean bandage Neuro: Alert, no focal deficits, moves all extremities, Skin: warm/dry OBJ DATA Labs CBC & Chem 7: 11/30/20 05:34 11/30/20 05:34 Labs: Abnormal Lab Results 11/30/20 11/30/20 11/29/20 05:34 05:34 05:47 RBC 3.55 L Hgb 10.1 L Hct 31.2 L MPV 11.8 H Lymph # (Auto) Carbon Dioxide BUN 25 H 32 H Creatinine 1.2 H 1.5 H Glucose Calcium 8.5 L Ionized Calcium Alex Alkaline Phosphatase 38 L C-Reactive Protein 1.20 H Total Protein 5.6 L Albumin 2.7 L Albumin/Globulin Ratio 0.9 L Procalcitonin 11/29/20 11/28/20 11/28/20 05:47 13:49 05:26 RBC 2.89 L Hgb 8.2 L 8.7 L Hct 25.8 L MPV 11.3 H Lymph # (Auto) 1.25 L Carbon Dioxide BUN Creatinine Glucose Calcium Ionized Calcium Alex Alkaline Phosphatase C-Reactive Protein Total Protein Albumin Albumin/Globulin Ratio Procalcitonin 0.16 H 11/28/20 05:26 RBC Hgb Hct MPV Lymph # (Auto) Carbon Dioxide 21 L BUN 31 H Creatinine 1.6 H Glucose 139 H Calcium Ionized Calcium Alex 1.14 L Alkaline Phosphatase C-Reactive Protein 2.60 H Total Protein Albumin Albumin/Globulin Ratio Procalcitonin Meds: Medications Acetaminophen (Acetaminophen 325 Mg Tablet) 650 mg PO Q6HP PRN; Protocol PRN Reason: Per Pain Protocol/Fever > 101 Last Admin: 11/28/20 22:40 Dose: 650 mg Documented by: Bisoprolol Fumarate (Bisoprolol 5 Mg Tablet) 2.5 mg PO BID [facility] Last Admin: 11/30/20 21:35 Dose: 2.5 mg Documented by: Diphenhydramine HCl (Diphenhydramine 25 Mg Capsule) 25 mg PO HSP PRN PRN Reason: Insomnia Docusate Sodium (Docusate Sodium 100 Mg Capsule) 100 mg PO BID [facility] Last Admin: 11/30/20 21:35 Dose: Not Given Documented by: Heparin Sodium (Porcine) (Heparin 5,000 Unit/Ml Vial) 5,000 unit SQ Q12 [facility] Last Admin: 11/30/20 21:35 Dose: 5,000 unit Documented by: Heparin Sodium (Porcine) (Heparin Flush 10 Units/Ml 5 Ml Syringe) 2 ml IV Q12 [facility] Last Admin: 11/30/20 21:36 Dose: Not Given Documented by: Metronidazole (Flagyl) 500 mg in 100 mls @ 100 mls/hr IV Q8H [facility]; Protocol Last Admin: 12/01/20 05:55 Dose: Not Given Documented by: Ceftriaxone Sodium 2 gm/ (Dextrose) 50 mls @ 100 mls/hr IV Q24H [facility] Last Infusion: 11/30/20 09:40 Dose: Infused Documented by: Melatonin (Melatonin 3 Mg Tablet) 3 mg PO QHS [facility] Last Admin: 11/30/20 21:35 Dose: 3 mg Documented by: Ondansetron HCl (Ondansetron 4 Mg/2 Ml Vial) 4 mg IV Q6HP PRN PRN Reason: Nausea And Vomiting Oxandrolone (Oxandrolone 2.5 Mg Tablet) 5 mg PO BID [facility] Last Admin: 11/30/20 21:36 Dose: Not Given Documented by: Oxycodone/Acetaminophen (Oxycodone/Apap 5/325mg Tablet) 1 tab PO Q4-6HP PRN; Protocol PRN Reason: Per Pain Protocol Senna (Sennosides 1 Tablet) 2 tab PO HS [facility] Last Admin: 11/30/20 21:36 Dose: Not Given Documented by: Sodium Chloride (0.9 % Sodium Chloride 10 Ml Syringe) 10 ml IV Q8 [facility] Last Admin: 12/01/20 05:55 Dose: Not Given Documented by: Sodium Chloride (0.9 % Sodium Chloride 10 Ml Syringe) 10 ml IV Q12 [facility] Last Admin: 11/30/20 21:36 Dose: Not Given Documented by: A/P Narrative A/P Narrative: A: #Nonhealing left thigh wound: s/p I&D (11/27) #Anemia: stable #Elevated creatine: likely CKD, stable #Hypertension: Plan: -Dr. Philip following for complex wound care / wound vac -Ceftriaxone to levaquin for intolerance(nausea) and Flagyl -cont home BB, diuretics (Triamterene-Hydrochlorothiazide) initially now restarted -Monitor renal function, avoid potentially nephrotoxic medications. -Poultry Farmer consult -PT/OT -Midline for difficult IV access -Consult ID if the patient stays until Wednesday (Dr. Winters currently on vacation). 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
[2020-12-01] MEDS: DOCUSATE SODIUM 100 MG CAPSULE PO SCH ×2 (10:15→21:53)
[2020-12-01] MEDS: OXANDROLONE 2.5 MG TABLET PO SCH ×2 (10:17→21:54)
[2020-12-01] MEDS: cefTRIAXone 2 GM in DEXTROSE 5% IN WATER 50 ML IV SCH (10:19)
[2020-12-01] MEDS: ONDANSETRON 4 MG/2 ML VIAL IV PRN (10:36)
[2020-12-01] MEDS: BISOPROLOL 5 MG TABLET PO SCH ×2 (10:43→21:54)
[2020-12-01] MEDS: metroNIDAZOLE 500 MG TABLET PO SCH ×3 (11:22→21:54)
[2020-12-01] MEDS: HEPARIN 5,000 UNIT/ML VIAL SQ SCH ×2 (11:30→21:54)
[2020-12-01] MEDS: LEVOFLOXACIN 750 MG/150 ML BAG IV SCH (11:33)
[2020-12-01] MEDS: HYDROCHLOROTHIAZIDE PO SCH (11:38)
[2020-12-01] MEDS: TRIAMTERENE PO SCH (11:38)
--- NOTE | 2020-12-01 11:53 | Discharge Summary ---
Discharge Provider Provider Patient information: Note initiated : 12/01/20 at 11:51 am Service Date, if different from initiated Date: [] Patient: Pham Kelly 85 y/o F admitted on 11/27/20 for wound to left thigh infected. Chief Complaint: [] Date of admission: 11/27/20 22:46 Discharge date: 12/03/20 Primary care physician: Stella Santos Consults: 11/26/20 Consult to Physician [CONS] Stat Comment: Consulting Provider: Joseph Joseph Reason For Exam: Physician to Consult 11/26/20 19:00 Consult to Physician [CONS] Routine Comment: Consulting Provider: Kp Tucker Reason For Exam: Physician to Consult Discharge Meds Discharge Medications Home Medications bisoprolol fumarate 2.5 mg PO BID 11/26/20 [History Confirmed 11/26/20 Last Taken 11/23/20 08:00] triamterene-hydrochlorothiazid 1 cap PO QDAY 11/26/20 [History Confirmed 11/26/20 Last Taken 11/23/20] linezolid [Zyvox] 600 mg PO BID #16 tab 12/02/20 [Rx Last Taken Unknown] COURSE Hospital Course Hospital course: Interval history: Ms. Kelly is a 85 year old female with a history of hypertension and a left thigh wound sustained about 3 weeks ago after being trampled by a cow now presenting to the ED for surgery which is planned for tomorrow. Internal medicine has been asked to admit the patient. The patient denies fevers, she has been on multiple courses of antibiotics initially with Keflex then ciprofloxacin with no significant improvement in the wound. She denies changes in sensation or motor function in the left lower extremity. In the ED, the patient did not have leukocytosis, creatinine was 1.8, CRP 2.3. A CT scan of the left lower extremity without contrast showed a 7 cm cutaneous ulceration in the medial thigh with mild underlying cellulitis no evidence of underlying abscess, myositis, fasciitis, no evidence of osteomyelitis. 11/27 I&D today-possible femoral artery compromise, Dr. Philip consulting with vascular surgery. 11/28 Awaiting vascular surgery evaluation. Nutrition consulted to optimize nutrition for wound healing. 11/29 Vascular surgery feels the structure in question is a muscle/tendon, not vascular therefore no surgery will be required. The plan is for wound care, probably antibiotics, eventually reconstruction including a skin graft. Wound culture are not growing any organisms, the patient was receiving oral ciprofloxacin prior to admission. 11/30 Patient poor sleep last night partly from diarrhea from laxatives. Otherwise no complaints. Pending cultures and Dr. Tucker treatments. 12/01 Patient states the antibiotics are giving her nausea and upset stomach. She had poor sleep took melatonin but did not get the Benadryl. Will change IV Rocephin to Levaquin and see if that makes a difference. Dr. Tucker talk to me regarding some culture results that he had that are not available in the system. He would like the patient discharged on Zyvox. 12/02 No changes overnight. Awaiting for placement A/P Narrative: #Nonhealing left thigh wound: s/p I&D (11/27) #Anemia: stable #Elevated creatine: likely CKD, stable #Hypertension: Plan: -Dr. Philip following for complex wound care / wound vac -Abx Discharge diagnosis: Nonhealing wound left thigh Secondary discharge diagnosis: Chronic kidney disease hypertension Time Spent with Patient Time attestation: Total time spent providing and/or coordinating discharge services: EXAM Constitutional Vitals: Temp Pulse Resp BP Pulse Ox 97.2 F 65 16 140/68 90 12/01/20 11:12 12/01/20 11:12 12/01/20 11:12 12/01/20 11:12 12/01/20 11:12 Discharge Data Data Completed and Pending Labs on day of discharge: Preliminary micro results at discharge 11/26/20 12:12 Blood Culture - Preliminary Blood Discharge Plan Patient/Caregiver Discharge Instructions Activity: increase activity as tolerated Diet: Regular Diet Prescriptions: New linezolid [Zyvox] 600 mg tablet 600 mg PO BID Qty: 16 RF: 0 Continued triamterene-hydrochlorothiazid 37.5-25 mg Capsule 1 cap PO QDAY RF: 0 bisoprolol fumarate 5 mg Tablet 2.5 mg PO BID RF: 0 Discontinued ciprofloxacin HCl [Cipro] 500 mg Tablet 500 mg PO BID RF: 0 Other Ambulatory Orders: Wound Care Instructions (CONT) Location: None Selected Ordered By: Kp Tucker Follow Up Plan Follow up with: Stella Santos MD [Primary Care Provider] - Kp Tucker MD [Physician] - (in 1 week) Patient Disposition: Xfer SNF Prognosis: Fair Rehab Potential: Fair I certify that the patient requires SNF services: Yes Overall status at discharge: patient is progressing back to baseline Discharge Orders: Discharge Order (Routine); Ordered 12/03/20 [facility] Thrombosis/Pulmonary Embolism Present on Admission: No
[2020-12-01] MEDS ORDERED: diphenhydrAMINE 25 MG CAPSULE PO SCH (21:00)
[2020-12-01] MEDS: SENNOSIDES 1 TABLET PO SCH (21:54)
[2020-12-01] MEDS: MELATONIN 3 MG TABLET PO SCH (21:54)
[2020-12-01 23:24] LABS: Blood Urea Nitrogen 17 mg/dL (8-23); Calcium 8.4 mg/dL (8.6-10.4); Carbon Dioxide 21 mmol/L (22-30); Chloride 103 mmol/L (96-108); Glomerular Filtration Rate 41; Glucose 97 mg/dL (70-105)
[2020-12-02] MEDS: 0.9 % SODIUM CHLORIDE 10 ML SYRINGE IV SCH ×6 (06:05→21:57)
[2020-12-02] MEDS: metroNIDAZOLE 500 MG TABLET PO SCH ×3 (06:05→22:00)
--- NOTE | 2020-12-02 07:12 | Internal Med Progress Note ---
SUBJECTIVE Subjective Patient information: Note initiated : 12/02/20 at 7:12 am Service Date, if different from initiated Date: [] Patient: Pham Kelly 85 y/o F admitted on 11/27/20 for wound to left thigh infected. Chief Complaint: [] Interval history: Ms. Kelly is a 85 year old female with a history of hypertension and a left thigh wound sustained about 3 weeks ago after being trampled by a cow now presenting to the ED for surgery which is planned for tomorrow. Internal medicine has been asked to admit the patient. The patient denies fevers, she has been on multiple courses of antibiotics initially with Keflex then ciprofloxacin with no significant improvement in the wound. She denies changes in sensation or motor function in the left lower extremity. In the ED, the patient did not have leukocytosis, creatinine was 1.8, CRP 2.3. A CT scan of the left lower extremity without contrast showed a 7 cm cutaneous ulceration in the medial thigh with mild underlying cellulitis no evidence of underlying abscess, myositis, fasciitis, no evidence of osteomyelitis. 11/27 I&D today-possible femoral artery compromise, Dr. Philip consulting with vascular surgery. 11/28 Awaiting vascular surgery evaluation. Nutrition consulted to optimize nutrition for wound healing. 11/29 Vascular surgery feels the structure in question is a muscle/tendon, not vascular therefore no surgery will be required. The plan is for wound care, probably antibiotics, eventually reconstruction including a skin graft. Wound culture are not growing any organisms, the patient was receiving oral ciprofloxacin prior to admission. 11/30 Patient poor sleep last night partly from diarrhea from laxatives. Otherwise no complaints. Pending cultures and Dr. Tucker treatments. 12/01 Patient states the antibiotics are giving her nausea and upset stomach. She had poor sleep took melatonin but did not get the Benadryl. Will change IV Rocephin to Levaquin and see if that makes a difference. 12/02 No changes. Awaiting discharge charge to correction facility. Review of Systems: denies headache/fever/chills/vomiting/chest or abdominal pain/cough/dy spnea/diarrhea. Otherwise see above. Constitutional Vitals: Vital Signs Temp Pulse Resp BP Pulse Ox 96.8 F L 60 16 122/57 94 12/02/20 03:43 12/02/20 03:43 12/02/20 03:43 12/02/20 03:43 12/02/20 03:43 Period Temp Pulse Resp BP Sys/Restrepo Pulse Ox Last 24 Hr 96.8 F-98.7 F 60-98 14-18 115-160/50-73 90-96 Intake and Output 12/01/20 12/02/20 12/02/20 21:59 05:59 13:59 Intake Total 240 350 Output Total 700 Balance 240 -350 Weight 58.014 kg Intake & Output: Intake & Output 12/01/20 12/02/20 12/02/20 21:59 05:59 13:59 Intake Total 240 350 Output Total 700 Balance 240 -350 Weight 58.014 kg Intake: Oral 240 350 Output: Void Amount 700 Other: Meal Dinner Percent of Meal Consumed 25% Stool Consistency Normal for Patient # Bowel Movements 1 Exam: General: Alert, Awake, No acute Distress Eyes/N/T: EOMI, Head/Neck: neck supple, CV: RRR, No murmurs, Pulm: Clear b/l, no wheezing/rhonchi/rales Abd: soft, nontender, +BS x4 Ext: large wound on medial left thigh covered in clean bandage Neuro: Alert, no focal deficits, moves all extremities, Skin: warm/dry OBJ DATA Labs CBC & Chem 7: 11/30/20 05:34 12/01/20 22:11 Labs: Abnormal Lab Results 12/01/20 11/30/20 11/30/20 22:11 05:34 05:34 RBC 3.55 L Hgb 10.1 L Hct 31.2 L MPV 11.8 H Carbon Dioxide 21 L BUN 25 H Creatinine 1.2 H 1.2 H Calcium 8.4 L Alkaline Phosphatase C-Reactive Protein Total Protein Albumin Albumin/Globulin Ratio 11/29/20 05:47 RBC Hgb Hct MPV Carbon Dioxide BUN 32 H Creatinine 1.5 H Calcium 8.5 L Alkaline Phosphatase 38 L C-Reactive Protein 1.20 H Total Protein 5.6 L Albumin 2.7 L Albumin/Globulin Ratio 0.9 L Meds: Medications Acetaminophen (Acetaminophen 325 Mg Tablet) 650 mg PO Q6HP PRN; Protocol PRN Reason: Per Pain Protocol/Fever > 101 Last Admin: 11/28/20 22:40 Dose: 650 mg Documented by: Bisoprolol Fumarate (Bisoprolol 5 Mg Tablet) 2.5 mg PO BID [facility] Last Admin: 12/01/20 21:54 Dose: 2.5 mg Documented by: Diphenhydramine HCl (Diphenhydramine 25 Mg Capsule) 25 mg PO HSP [facility] Docusate Sodium (Docusate Sodium 100 Mg Capsule) 100 mg PO BID [facility] Last Admin: 12/01/20 21:53 Dose: Not Given Documented by: Heparin Sodium (Porcine) (Heparin 5,000 Unit/Ml Vial) 5,000 unit SQ Q12 [facility] Last Admin: 12/01/20 21:54 Dose: 5,000 unit Documented by: Heparin Sodium (Porcine) (Heparin Flush 10 Units/Ml 5 Ml Syringe) 2 ml IV Q12 [facility] Last Admin: 12/01/20 21:55 Dose: 2 ml Documented by: Hydralazine HCl (Hydralazine 20 Mg/Ml Vial) 0 mg IV Q2HP PRN PRN Reason: Hypertension Levofloxacin (Levaquin) 750 mg in 150 mls @ 100 mls/hr IV Q48H [facility] Last Infusion: 12/01/20 13:10 Dose: Infused Documented by: Melatonin (Melatonin 3 Mg Tablet) 3 mg PO QHS [facility] Last Admin: 12/01/20 21:54 Dose: 3 mg Documented by: Metronidazole (Metronidazole 500 Mg Tablet) 500 mg PO Q8 [facility]; Protocol Last Admin: 12/02/20 06:05 Dose: 500 mg Documented by: Ondansetron HCl (Ondansetron 4 Mg/2 Ml Vial) 4 mg IV Q6HP PRN PRN Reason: Nausea And Vomiting Last Admin: 12/01/20 10:36 Dose: 4 mg Documented by: Oxandrolone (Oxandrolone 2.5 Mg Tablet) 5 mg PO BID [facility] Last Admin: 12/01/20 21:54 Dose: Not Given Documented by: Oxycodone/Acetaminophen (Oxycodone/Apap 5/325mg Tablet) 1 tab PO Q4-6HP PRN; Pr otocol PRN Reason: Per Pain Protocol Triamterene/Hydrochlorothiazide 37.5mg/12.5 Mg Tablet 1 dose PO DAILY [facility] Last Admin: 12/01/20 11:38 Dose: Not Given Documented by: Senna (Sennosides 1 Tablet) 2 tab PO HS [facility] Last Admin: 12/01/20 21:54 Dose: Not Given Documented by: Sodium Chloride (0.9 % Sodium Chloride 10 Ml Syringe) 10 ml IV Q8 [facility] Last Admin: 12/02/20 06:05 Dose: Not Given Documented by: Sodium Chloride (0.9 % Sodium Chloride 10 Ml Syringe) 10 ml IV Q12 [facility] Last Admin: 12/01/20 21:55 Dose: 10 ml Documented by: A/P Narrative A/P Narrative: A: #Nonhealing left thigh wound: s/p I&D (11/27) #Anemia: stable #Elevated creatine: likely CKD, stable #Hypertension: Plan: -Dr. Philip following for complex wound care / wound vac -Ceftriaxone to levaquin for intolerance(nausea) and Flagyl -cont home BB, diuretics (Triamterene-Hydrochlorothiazide) initially now restarted -Monitor renal function, avoid potentially nephrotoxic medications. 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
[2020-12-02] MEDS: BISOPROLOL 5 MG TABLET PO SCH ×2 (08:20→21:33)
[2020-12-02] MEDS: HEPARIN 5,000 UNIT/ML VIAL SQ SCH ×2 (08:21→21:33)
[2020-12-02] MEDS ORDERED: GENTAMICIN SULFATE 40 MG, CLINDAMYCIN 300 MG, BACITRACIN 25,000 UNIT in SODIUM CHLORIDE... IRR SCH (09:30)
[2020-12-02] MEDS: TRIAMTERENE PO SCH (10:46)
[2020-12-02] MEDS: OXANDROLONE 2.5 MG TABLET PO SCH ×2 (10:46→21:36)
[2020-12-02] MEDS: DOCUSATE SODIUM 100 MG CAPSULE PO SCH ×2 (10:46→21:31)
[2020-12-02] MEDS: HYDROCHLOROTHIAZIDE PO SCH (10:46)
--- NOTE | 2020-12-02 12:10 | General Surgery Progress Note ---
SUBJECTIVE Subjective Patient information: Note initiated : 12/02/20 at 11:57 am Service Date, if different from initiated Date: [] Patient: Pham Kelly 85 y/o F admitted on 11/27/20 for wound to left thigh infected. Chief Complaint: [] Additional PMFSH (Level 3 Only): Patient seen on AM rounds with Kacie LOPEZ. Inpatient wound care nurse. Wound examined. Progress reviewed with Dr. Guidry, Hospitalist Physician. Patient reports nausea due to antibiotic usage. DENIES V/D. Had a regular BM. Soft stool. Constitutional Vitals: Vital Signs Temp Pulse Resp BP Pulse Ox 98.5 F 74 16 129/76 97 12/02/20 11:46 12/02/20 11:46 12/02/20 11:46 12/02/20 11:46 12/02/20 11:46 Period Temp Pulse Resp BP Sys/Restrepo Pulse Ox Last 24 Hr 96.8 F-98.7 F 60-98 14-16 115-130/50-76 93-98 Intake and Output 12/01/20 12/02/20 12/02/20 21:59 05:59 13:59 Intake Total 240 350 Output Total 700 Balance 240 -350 Weight 127 lb 14.4 oz Intake & Output: Intake & Output 12/01/20 12/02/20 12/02/20 21:59 05:59 13:59 Intake Total 240 350 Output Total 700 Balance 240 -350 Weight 127 lb 14.4 oz Intake: Oral 240 350 Output: Void Amount 700 Other: Meal Dinner Percent of Meal Consumed 25% Stool Consistency Normal for Patient # Bowel Movements 1 General appearance: cooperative and no acute distress Exam: AVSS. No changes KERI. Ambulates well. Using IS. L/E: Wound bed is stove cleaner. About 15% slough. Granulations over 70% No odor. NO signs of acute infection or inflammation. 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 Patient will benefit from local wound care with Vashe and GCB Dressing changes BID at a SNF or Rehab facility. At this stage, patient can be treated with ZYVOX PO, whilst awaiting ID evaluation by Dr. Winters. Patient can be discharged to a short term Rehab facility and be F/U at wound care clinic in 1 week. A/P Narrative A/P Narrative: Assessment: See detailed note above in examination section. Post operative wound POD # 5 Malnutrition ( Hypoproteinemia ) Polymicrobial infection. Needs ongoing local wound care ID evaluation for antibiotic recommendations. She needs to be monitored closely Plan: To see fro f/u in clinic after discharge, Will await nutritional repletion, improvement. Further recommendations as her conditions evolves. Time Spent With Patient Time: Total time spent is greater than 50% in coordination of care (as documented) at patient's floor/unit and/or counseling patient: Total time spent with greater than 50% in coordination of care (as documented) at patient's floor/unit and/or counseling patient:: Greater than 35 minutes
[2020-12-02] MEDS: ONDANSETRON 4 MG/2 ML VIAL IV PRN (16:58)
[2020-12-02] MEDS: GENTAMICIN SULFATE 40 MG, CLINDAMYCIN 300 MG in SODIUM CHLORIDE IRRIG SOLUTION 500 ML IRR SCH ×2 (17:01→21:32)
[2020-12-02] MEDS: MELATONIN 3 MG TABLET PO SCH (21:33)
[2020-12-02] MEDS: SENNOSIDES 1 TABLET PO SCH (21:36)
[2020-12-03] MEDS: metroNIDAZOLE 500 MG TABLET PO SCH (05:38)
[2020-12-03] MEDS: ONDANSETRON 4 MG/2 ML VIAL IV PRN (06:59)
[2020-12-03] MEDS: GENTAMICIN SULFATE 40 MG, CLINDAMYCIN 300 MG in SODIUM CHLORIDE IRRIG SOLUTION 500 ML IRR SCH (07:50)
[2020-12-03] MEDS: DOCUSATE SODIUM 100 MG CAPSULE PO SCH (07:50)
[2020-12-03] MEDS: HYDROCHLOROTHIAZIDE PO SCH (07:51)
[2020-12-03] MEDS: TRIAMTERENE PO SCH (07:51)
[2020-12-03] MEDS: HEPARIN 5,000 UNIT/ML VIAL SQ SCH (08:00)
[2020-12-03] MEDS: BISOPROLOL 5 MG TABLET PO SCH (08:01)
[2020-12-03] MEDS: OXANDROLONE 2.5 MG TABLET PO SCH (08:01)
[2020-12-03] MEDS: 0.9 % SODIUM CHLORIDE 10 ML SYRINGE IV SCH (08:02)
[2020-12-03] MEDS: LEVOFLOXACIN 750 MG/150 ML BAG IV SCH (08:17)
== END 2020-12-03 10:49 | DRG 580 ==
LOC: MEDSUR 09:03 → ED 09:03 → MEDSUR 11-28 00:33
PROVIDERS: ADMIT Internal Medicine; ATTEND Internal Medicine